=== PATIENT | female | born 1960 | race Caucasian/White ===

== ENCOUNTER → 2016-12-07 | Outpatient (CLI) | payer BC ==
[2016-12-07 10:30] LABS: Basophils # (A) 0.1 k/uL (0-0.2); Basophils % (A) 1 %; CH 29.9; CHCM 32.2; Eosinophils # (A) 0.1 k/uL (0-0.7); Eosinophils % (A) 3 %; HDW 2.19; HGB 13.1 gm/dL (11.4-16.0); Luc # (Auto) 0.11; Luc % (Auto) 2; Lymphocytes # (A) 1.2 k/uL (1.0-4.8); Lymphocytes % (A) 21 %; MCH 29.7 pg (25.0-35.0); MCHC 31.8 g/dL (31.0-37.0); MCV 93.2 fL (80.0-100.0); Mean Platelet Volume 8.7; Monocytes # (A) 0.4 k/uL (0-1.0); Monocytes % (A) 8 %; Neutrophils # (A) 3.7 k/uL (1.3-7.7); Neutrophils % (A) 66 %; WBC 5.6 k/uL (3.8-10.6); WBC (Perox) 5.91
[2016-12-07 10:34] LABS: Appearance,Urine Clear (Clear); Bilirubin,Urine Negative (Negative); Glucose,Urine (UA) Negative (Negative); Ketones,Urine Negative (Negative); Leukocyte Esterase,Urine Large (Negative); Mucus,Urine Rare /hpf; Nitrite,Urine Negative (Negative); Particle Count 2150; Protein,Urine Negative (Negative); RBC,Urine <1 /hpf (0-5); Specific Gravity,Urine 1.007 (1.001-1.035); Squamous Epithelial Cell,Urine 2 /hpf (0-4); UA Billing (MACRO vs. MICRO) MICRO; Urobilinogen,Urine <2.0 mg/dL (<2.0); WBC,Urine 27 /hpf (0-5)
[2016-12-07 10:38] LABS: Potassium 4.7 mmol/L (3.5-5.1)
== END | disposition home or self-care (01) ==
LOC: LABWHC1 09:47
PROVIDERS: ATTEND Surgery
DX: Z01.812 Encounter for preprocedural laboratory examination (principal); N39.0 Urinary tract infection, site not specified
CPT/HCPCS: 36415; 80051; 81001; 85025

== ENCOUNTER 2017-01-14 12:33 | Day surgery (SDC) | payer BC ==
[2017-01-13 10:16] VITALS: BMI 26.6
[~2017-01-14 12:33] MED LIST: DEXAMETHASONE SOD PHOSPHATE 10 MG/ML 1 ML VIAL IV ONE; HEPARIN SODIUM,PORCINE 5,000 UNIT/ML 1 ML VIAL SQ ONE; LACTATED RINGERS 1,000 ML IV SCH; MIDAZOLAM 2 MG/2 ML VIAL IV PRN; SCOPOLAMINE 1.5MG/72HR PATCH TRANSDERM ONE; ceFAZolin 2 GM in SODIUM CHLORIDE 0.9% 100 ML IVPB ONE
[2017-01-14] MEDS: LIDOCAINE 1% 20 ML VIAL (10MG/ML) FOR IV START INTRADERMA PRN ×2 (12:52→12:53)
[2017-01-14] MEDS: ONDANSETRON 4 MG/2 ML VIAL IVP ONE ×2 (12:53→17:17)
[2017-01-14] MEDS ORDERED: ROCURONIUM BROMIDE 10 MG/ML 10 ML VIAL IV ONE (14:45)
[2017-01-14] MEDS ORDERED: SUCCINYLCHOLINE CHLORIDE 100 MG/5 ML SYR IV ONE (14:45)
[2017-01-14] MEDS ORDERED: MIDAZOLAM 2 MG/2 ML VIAL ONE (14:45)
[2017-01-14] MEDS ORDERED: HYDROmorphone (PF) 1 MG/ML ONE (14:45)
[2017-01-14] MEDS ORDERED: PROPOFOL 10 MG/ML 20 ML VIAL IV ONE (14:45)
[2017-01-14] MEDS ORDERED: NEOSTIGMINE 1 MG/ML 10 ML VIAL ONE (14:45)
[2017-01-14] MEDS ORDERED: GLYCOPYRROLATE 0.2 MG/ML 2 ML VIAL ONE (14:45)
[2017-01-14] MEDS ORDERED: LIDOCAINE 1% INJ 10MG/ML (20 ML MDV) ONE (14:45)
[2017-01-14] MEDS ORDERED: ePHEDrine 50 MG/ML 1 ML AMP ONE (14:45)
[2017-01-14] MEDS ORDERED: fentaNYL (PF) 50 MCG/ML 2 ML AMP ONE (14:45)
[2017-01-14] MEDS ORDERED: BUPIVACAIN-EPI 0.25%-1:200,000 30 ML VIAL SQ ONE ×2 (15:21)
[2017-01-14] MEDS ORDERED: LACTATED RINGERS 1,000 ML IV ONE (16:01)
[2017-01-14] MEDS: HYDROmorphone 1 MG/ML 1 ML SYRINGE IVP PRN ×4 (16:43→17:24)
[2017-01-14 16:53] VITALS: TEMP 97.4
[2017-01-14] MEDS ORDERED: KETOROLAC 30 MG/ML 1 ML VIAL IVP ONE (17:02)
--- NOTE | 2017-01-14 17:15 | P.OP ---
Date of Procedure: 01/14/17 Preoperative Diagnosis: Right sided inguinal pain Postoperative Diagnosis: Right femoral hernia Right indirect inguinal hernia Right obturator hernia Procedure(s) Performed: RObot assisted laparocopic repair of right groin hernias with mesh Implants: 12 x 16 Bard Pro director of sleep mesh Anesthesia: ANDRAEA Surgeon: Pro Solomon Estimated Blood Loss (ml): 11 Pathology: none sent Condition: stable Disposition: PACU Indications for Procedure: Right groin pain Operative Findings: Right femoral hernia Right obturator hernia Right indirect inguinal hernia Description of Procedure: Informed consent was obtained patient and then The patient was brought to the operating room and placed in supine position. General anesthesia with endotracheal intubation was performed as per anesthesia team. A jimenez catheter was inserted under sterile aseptic precautions. Chlorhexidine was used to prep the skin followed by application of sterile drapes . She was placed in the lithotomy position. A timeout was performed to verify correct patient, correct procedure and correct side. Patient was confirmed to receive perioperative IV antibiotics, subcutaneous heparin 5000 units and bilateral SCDs were placed. The left upper quadrant point was identified and a stab incision was made. Veress needle was introduced and placement was confirmed with the help of the drop test. The abdomen was then insufflated to 15 mmHg. Once that was done 5 mm port was introduced into the left upper quadrant using the Optiview technique after which a 12 mm port was placed in the supraumbilical position and a 8 mm port in the right lower quadrant and then after that the left-sided 5 mm port was replaced with a robot 8 mm port under direct vision. The robot was then docked with the central camera port and the 2 side working ports. The cardia forceps and scissors were taken and the working ports. After which the median umbilical fold was retracted laterally towards the left side a small incision was made at the junction of the umbilical fold and the peritoneum and carried all the way laterally thus creating a small plane in the preperitoneal space. This did this was further dissected with the help of blunt dissection using gentle stroking maneuvers all the way down to Jamey ligament medially. The hernia sac was identified and gently teased out of was lateral to the inferior epigastrics. The round ligament was identified and transected with the help of scissors and electrocautery. At that point as the inferior peritoneal fold was being developed another pad of fat was pulled out from the femoral canal was exposing a femoral hernia furthermore another pad of fat was pullout of the obturator canal exposing the obturator hernia. There were no other past events within these hernias. Once the fascial margins were completely cleared up adequate dissection was done medially behind the pubic bone laterally all the way 5 cm lateral to the internal inguinal ring and inferiorly well below the obturator hernia a 12 x 16 Bard Pro director of sleep mesh was introduced and unfolded this completely covering all the orifices. Once that was done the peritoneal flaps were closed with the help of running 0 vlock suture once that was done procedure was completed all incisions and camera was removed and a laparoscope was introduced and the 12 mm port site was closed with the help of a Emir Rowley the direct vision after which gas was turned off abdomen was thoroughly desufflated skins was closed with the help of 4-0 Monocryl and Dermabond. Jimeenz catheter was removed patient was extubated and taken to recovery room in stable condition patient tolerated the procedure well there were no complications
[2017-01-14 17:46] VITALS: RESP 16
[2017-01-14 18:54] VITALS: BP 114/60; PULSE 65
== END 2017-01-14 19:05 | disposition home or self-care (01) ==
LOC: OR 12:33
PROVIDERS: ATTEND Surgery
DX: K40.90 Unilateral inguinal hernia, without obstruction or gangrene, not specified as recurrent (principal); K41.90 Unilateral femoral hernia, without obstruction or gangrene, not specified as recurrent; K45.8 Other specified abdominal hernia without obstruction or gangrene; E03.9 Hypothyroidism, unspecified; Z79.899 Other long term (current) drug therapy; Z79.82 Long term (current) use of aspirin
CPT/HCPCS: 49650; 49659; S2900

== ENCOUNTER → 2020-02-07 | Outpatient (CLI) | payer BC ==
--- NOTE | 2020-02-07 09:10 | US ---
EXAMINATION TYPE: US abdomen comp/pelvis limited DATE OF EXAM: 02/07/2020 COMPARISON: Abdominal ultrasound 09/19/2015 CLINICAL HISTORY: R10.31 RLQ PAIN. Right flank pain for 2 months, nausea EXAM MEASUREMENTS: Liver Length: 15.4 cm Gallbladder Wall: 0.2 cm CBD: 0.6 cm Spleen: 10.2 cm Right Kidney: 10.9 x 3.7 x 4.2 cm Left Kidney: 11.1 x 5.6 x 3.8 cm Technical limitations due to large amount of overlying bowel content Pancreas: visualized portions appear wnl Liver: appears wnl Gallbladder: no evidence of stones CBD: wnl Spleen: wnl Right Kidney: cystic area anterior lower pole = 1.1 x 1.1 x 1.1cm, dense echogenic area lower pole = 0.5cm Left Kidney: prominent collecting system Upper IVC: wnl Abd Aorta: visualized portions appear wnl Bladder: wnl Bilateral Jets Seen yes IMPRESSION: 1. No sonographic evidence of cholelithiasis nor acute cholecystitis. 2. Fullness of the left collecting system is again seen as demonstrated on the prior of 2014 appearin g similar in degree, mild pelvocaliectasis. 3. Nonobstructing 5 mm right renal calculus and 1.1 cm right renal cyst.
== END | disposition home or self-care (01) ==
LOC: RADUSWWP 08:17
PROVIDERS: ATTEND Family Medicine
DX: N20.0 Calculus of kidney (principal); N28.1 Cyst of kidney, acquired
CPT/HCPCS: 76700; 76857

== ENCOUNTER → 2020-03-18 | Outpatient (CLI) | payer BC ==
--- NOTE | 2020-03-18 13:50 | XR ---
EXAMINATION TYPE: XR shoulder complete RT DATE OF EXAM: 03/18/2020 COMPARISON: NONE HISTORY: 59-year-old female S46.011D, right shoulder pain after fall TECHNIQUE: 3 views FINDINGS: Mild degenerative change at the AC joint. Subacromial space is preserved. No acute fracture, subluxat ion, or dislocation seen. IMPRESSION: Mild AC joint OA. No acute osseous abnormality seen.
== END | disposition home or self-care (01) ==
LOC: RADXRMAIN 10:37
PROVIDERS: ATTEND Orthopaedic Surgery Adult Reconstructive Orthopaedic Surgery
DX: M19.011 Primary osteoarthritis, right shoulder (principal)

== ENCOUNTER 2020-11-05 11:39 | Day surgery (SDC) | payer BC ==
[2020-11-01 15:08] VITALS: BMI 27.7
[~2020-11-05 11:39] MED LIST changes: -DEXAMETHASONE SOD PHOSPHATE 10 MG/ML 1 ML VIAL IV ONE; -HEPARIN SODIUM,PORCINE 5,000 UNIT/ML 1 ML VIAL SQ ONE; +LIDOCAINE 1% (10MG/ML) FOR IV START INTRADERMA PRN; -MIDAZOLAM 2 MG/2 ML VIAL IV PRN; -SCOPOLAMINE 1.5MG/72HR PATCH TRANSDERM ONE; -ceFAZolin 2 GM in SODIUM CHLORIDE 0.9% 100 ML IVPB ONE
[2020-11-05 12:46] VITALS: TEMP 97
[2020-11-05] MEDS ORDERED: ONDANSETRON 4 MG/2 ML VIAL ONE (13:12)
[2020-11-05] MEDS ORDERED: ONDANSETRON 4 MG/2 ML VIAL IVP ONE (13:16)
[2020-11-05] MEDS ORDERED: PROPOFOL 10 MG/ML 20 ML VIAL IV ONE (13:27)
[2020-11-05] MEDS ORDERED: LIDOCAINE 1% INJ 10MG/ML (20 ML MDV) ONE (13:27)
[2020-11-05] MEDS ORDERED: GLYCOPYRROLATE 0.2 MG/ML 2 ML VIAL ONE (13:27)
--- NOTE | 2020-11-05 13:53 | P.PCN ---
Date of Procedure: 11/05/20 Procedure(s) Performed: Brief history: Patient is a pleasant 60-year-old white female scheduled for an elective upper endoscopy as well as colonoscopy as a part of evaluation of abdominal pain/nausea vomiting associated with episodes of rectal bleeding for the last 10 days duration. She has bowel movements anywhere from 3-4 a day.. Procedure performed: Esophagogastroduodenoscopy with biopsy Colonoscopy with biopsy and snare polypectomy Preoperative diagnosis: Nausea vomiting Abdominal pain and bloody diarrhea for 10 days duration Anesthesia: MAC Procedure: After informed consent was obtained from the patient was brought into the endoscopy unit and IV sedation was administered by anesthesia under continuous monitoring. Initially upper endoscopy was done. The Olympus GF 160 video endoscope was inserted inserted into the mouth and esophagus intubated without any difficulty and was gradually advanced into the stomach and duodenum and carefully examined. The bulb and second part of the duodenum appeared normal. Biopsies were done from the duodenum to rule out celiac disease. The scope was then withdrawn into the stomach adequately insufflated with air and upon careful examination the antrum had mild gastritis and biopsies were done from this area. The body, cardia and fundus appeared normal. The scope was then withdrawn into the esophagus. The GE junction was located at 40 cm to the incisors. It appeared regular with no erythema erosions or ulcerations. Rest of the esophagus appeared normal. Patient tolerated the procedure well. At this time the patient continued to remain sedation. Initial digital rectal examination was normal. Olympus CF 160 video colonoscope was then inserted into the rectum and gradually advanced to the cecum without any difficulty. Careful examination was performed as the scope was gradually being withdrawn. The prep was excellent. The cecum, ascending colon, transverse colon, appeared normal. There was mild segmental colitis involving the distal descending colon extending from 45-55 cm from the anal verge with mucosal erythema suspicious for resolving ischemic colitis, status post multiple biopsies. Scattered left sided diverticulosis seen. Mucosa of the, sigmoid colon and rectum appeared normal. There was a 5 mm rectosigmoid polyp that was removed by snare polypectomy. Retroflexion was performed in the rectum and no lesions were noted. Patient tolerated the procedure well. Impression: 1. Upper endoscopy revealed mild antral gastritis 2. Colonoscopy revealed mild segmental ressolving colitis involving the descending colon with erythema suggestive of ischemic colitis, status post biopsy, scattered sigmoid diverticulosis and a 5 mm rectosigmoid polyp status post snare polypectomy Recommendations: Findings of this examination were discussed with the patient as well as. She was advised to follow with the biopsy results. She'll be seen in office in 2 weeks.
[2020-11-05 14:25] VITALS: BP 134/85; PULSE 85; RESP 16
== END 2020-11-05 14:35 | disposition home or self-care (01) ==
LOC: ORWHC2ENDO 11:39
PROVIDERS: ATTEND Internal Medicine Gastroenterology
DX: K57.30 Diverticulosis of large intestine without perforation or abscess without bleeding (principal); K29.50 Unspecified chronic gastritis without bleeding; K55.039 Acute (reversible) ischemia of large intestine, extent unspecified; D12.8 Benign neoplasm of rectum; K21.9 Gastro-esophageal reflux disease without esophagitis; Z86.010 Personal history of colon polyps; Z79.890 Hormone replacement therapy
CPT/HCPCS: 88305; 45380; 45385; 43239; J2405; J2001; J2704

== ENCOUNTER → 2021-09-10 | Outpatient (CLI) | payer BC ==
--- NOTE | 2021-09-11 05:08 | MR ---
EXAMINATION TYPE: MR shoulder RT wo con DATE OF EXAM: 09/10/2021 COMPARISON: None HISTORY: Shoulder pain Comparison none. TECHNIQUE: Multiplanar multiecho imaging of the right shoulder without contrast. Subscapularis tendon is intact. Biceps tendon is intact. There is small shoulder joint effusion. Ther e is some fluid in the subdeltoid bursa. There is some thinning and increased signal in the supraspin atus tendon over the top of the humeral head. There is no retraction. There is some spurring and flui d signal in the AC joint. Fluid signal extends into the subacromial joint space. The glenoid janeen appear intact. There is no evidence of a fracture. IMPRESSION: Shoulder joint effusion and subdeltoid effusion. Increased fluid signal in the AC joint consistent wi th ligamentous tear. There is small full-thickness tear of the supraspinatus tendon. No retraction.
== END | disposition home or self-care (01) ==
LOC: RADMRIMAIN 06:56
PROVIDERS: ATTEND Family Medicine
DX: M75.121 Complete rotator cuff tear or rupture of right shoulder, not specified as traumatic (principal); M25.411 Effusion, right shoulder

== ENCOUNTER → 2021-12-11 | Outpatient (CLI) | payer BC ==
--- NOTE | 2021-12-11 13:00 | ECHOF ---
Referral Reason:I51.7 MEASUREMENTS -------- HEIGHT: 165.1 cm WEIGHT: 79.4 kg BP: RVIDd: 3.9 cm (< 3.3) IVSd: 1.2 cm (0.6 - 1.1) LVIDd: 4.3 cm (3.9 - 5.3) LVPWd: 1.2 cm (0.6 - 1.1) IVSs: 2.1 cm LVIDs: 2.3 cm LVPWs: 1.3 cm LAESV Index (A-L): 42.39 ml/m Ao Diam: 3.1 cm (2.0 - 3.7) AV Cusp: 2.0 cm (1.5 - 2.6) LA Diam: 4.2 cm (2.7 - 3.8) MV EXCURSION: 17.766 mm (> 18.000) MV EF SLOPE: 57 mm/s (70 - 150) EPSS: 0.2 cm MV E Job: 0.83 m/s MV DecT: 218 ms MV A Job: 1.10 m/s MV E/A Ratio: 0.76 RAP: 5.00 mmHg RVSP: 23.82 mmHg FINDINGS -------- Sinus rhythm. This was a technically adequate study. The left ventricular size is normal. There is mild concentric left ventricular hypertrophy. Overa ll left ventricular systolic function is normal with, an EF between 55 - 60 %. The right ventricle is mild to moderately enlarged. The left atrium is mildly dilated. The right atrial size is normal. Interatrial and interventricular septum intact. The aortic valve is trileaflet and appears structurally normal. There is no evidence of aortic regu rgitation. There is no evidence of aortic stenosis. Mild mitral regurgitation is present. Mild tricuspid regurgitation present. There is no evidence of pulmonary hypertension. The right v entricular systolic pressure, as measured by Doppler, is 23.82mmHg. Trace/mild (physiologic) pulmonic regurgitation. The aortic root size is normal. IVC Not well visulized. Echo free space represents a pericardial fat pad. There is no pericardial effusion. CONCLUSIONS -------- 1. The left ventricular size is normal. 2. There is mild concentric left ventricular hypertrophy. 3. Overall left ventricular systolic function is normal with, an EF between 55 - 60 %. 4. The right ventricle is mild to moderately enlarged. 5. The left atrium is mildly dilated. 6. Mild mitral regurgitation is present. 7. Mild tricuspid regurgitation present. 8. Trace/mild (physiologic) pulmonic regurgitation. WORKER'S COMPENSATION CLAIMS EXAMINER: Rasheeda Godoy RDCS
== END | disposition home or self-care (01) ==
LOC: RADECHMAIN 11:50
PROVIDERS: ATTEND Family Medicine
DX: I08.1 Rheumatic disorders of both mitral and tricuspid valves (principal)
CPT/HCPCS: 93306

== ENCOUNTER → 2022-02-17 | Outpatient (CLI) | payer BC, OTHER ==
--- NOTE | 2022-02-17 13:34 | US ---
EXAMINATION TYPE: US venous doppler duplex LE LT DATE OF EXAM: 02/17/2022 1:15 PM COMPARISON: NONE CLINICAL HISTORY: R22.42. Left Knee pain and swelling post fall in 12/2021 SIDE PERFORMED: Left TECHNIQUE: The lower extremity deep venous system is examined utilizing real time linear array sonog jack with graded compression, doppler sonography and color-flow sonography. VESSELS IMAGED: Common Femoral Vein Deep Femoral Vein Greater Saphenous Vein * Femoral Vein Popliteal Vein Small Saphenous Vein * Proximal Calf Veins (* superficial vessels) Popliteal fossa/medial to left knee fluid collection measuring 4.5 x 2.2 x 0.9cm Left Leg: Negative for DVT No DVT seen at this time, fluid collection seen in popliteal fossa, medial to left knee. IMPRESSION: 1. Left lower extremity ultrasound negative for deep venous thrombosis. 2. Small fluid collection outside the joint space may be a popliteal cyst
== END | disposition home or self-care (01) ==
LOC: RADUSWWP 12:41
PROVIDERS: ATTEND Family Medicine
DX: R22.42 Localized swelling, mass and lump, left lower limb (principal); M25.562 Pain in left knee; W19.XXXA Unspecified fall, initial encounter

== ENCOUNTER → 2022-03-28 | Outpatient (CLI) | payer BC, OTHER ==
[2022-03-28 16:15] LABS: Anion Gap 9.8 mmol/L (10.00-18.00); Carbon Dioxide 25.2 mmol/L (20.0-27.5); Potassium 4.3 mmol/L (3.5-5.5)
[2022-03-28 16:18] LABS: Basophils # (A) 0.05 X 10*3/uL (0.00-0.10); Basophils % (A) 0.8 %; Eosinophils % (A) 1.6 %; HCT 39.8 % (37.2-46.3); HGB 12.4 g/dL (12.0-15.0); Immature Grans, Automated 0.2 %; Lymphocytes # (A) 1.96 X 10*3/uL (0.90-5.00); Lymphocytes % (A) 31.5 %; MCH 28.8 pg (27.0-32.0); MCHC 31.2 g/dL (32.0-37.0); MCV 92.6 fL (80.0-97.0); Mean Platelet Volume 12.4 fL (9.5-12.2); Monocytes # (A) 0.76 X 10*3/uL (0.20-1.00); Monocytes % (A) 12.2 %; NRBC Per 100 WBC 0 /100 WBCS (0.0-0.0); Neutrophils # (A) 3.34 X 10*3/uL (1.80-7.70); Neutrophils % (A) 53.7 %; Platelet Count 199 X 10*3/uL (140-440); RDW 13.1 % (11.5-14.5); WBC 6.22 X 10*3/uL (4.50-10.00)
== END | disposition home or self-care (01) ==
LOC: LABPAT 10:44
PROVIDERS: ATTEND Orthopaedic Surgery
DX: Z01.812 Encounter for preprocedural laboratory examination (principal); M23.92 Unspecified internal derangement of left knee
CPT/HCPCS: 80051; 85025; 93005

== ENCOUNTER → 2022-04-16 | Day surgery (SDC) | payer BC, OTHER ==
[2022-04-15 08:54] VITALS: BMI 30.4
--- NOTE | 2022-04-15 13:47 | HP ---
HISTORY AND PHYSICAL REASON FOR ADMISSION: Surgery scheduled 04/16/2022 HISTORY OF PRESENT ILLNESS: Isidra Lewis is a 61-year-old patient seen with progressive left knee pain. We discussed options for treatment. She elected to proceed with left knee arthroscopy. Consent was obtained. PAST MEDICAL HISTORY: Hypothyroidism. PAST SURGICAL HISTORY: Herniorrhaphy, cervical spine surgery. MEDICATIONS: Synthroid. ALLERGIES: None. SOCIAL HISTORY: She denies tobacco use. PHYSICAL EVALUATION OF THE LEFT KNEE: Range of motion is -5/6 to 80. Mild to moderate effusion. Tenderness along the medial joint line. Positive medial Pavithra's. Ligaments stable. Hip rotation without pain. Distal neurovascular exam is intact. RADIOGRAPHS: Radiographs of the left knee revealed mild osteoarthritis. MRI left knee revealed medial meniscal tear, osteoarthritis and Panda's cyst. IMPRESSION: 1. Internal derangement of left knee with medial meniscal tear. 2. Hypothyroidism. PLAN: Left knee arthroscopy with partial medial meniscectomy and debridement. MMODL / IJN: [id number] /
[~2022-04-16] MED LIST changes: +BUPIVACAINE (PF) 0.25% 30 ML VIAL SQ ONE; +DEXAMETHASONE SOD PHOSPHATE 4 MG/ML 1 ML VIAL IV ONE; -LIDOCAINE 1% (10MG/ML) FOR IV START INTRADERMA PRN; +LIDOCAINE 2% INJ 20 MG/ML (2 ML VIAL) ONE; +MIDAZOLAM 2 MG/2 ML VIAL ONE; +PROPOFOL 10 MG/ML 20 ML VIAL IV ONE; +diphenhydrAMINE 50 MG/ML 1 ML VIAL ONE; +fentaNYL (PF) 50 MCG/ML 2 ML AMP ONE
[2022-04-16] MEDS: ONDANSETRON 4 MG/2 ML VIAL IVP ONE ×2 (08:53→10:09)
--- NOTE | 2022-04-16 09:53 | P.OP ---
Date of Procedure: 04/16/22 Preoperative Diagnosis: Internal derangement left knee Postoperative Diagnosis: 1. Medial meniscal tear left knee 2. Reactive synovitis medial, lateral and suprapatellar compartments left knee Procedure(s) Performed: 1. Arthroscopic partial medial meniscectomy left knee 2. Arthroscopic partial synovectomy medial, lateral and suprapatellar compartments left knee Anesthesia: ANDRAEA, local Surgeon: Slade Villarreal Estimated Blood Loss (ml): 8 Pathology: none sent Condition: stable Disposition: PACU Indications for Procedure: 61-year-old patient seen with progressive left knee pain. After treatment options were discussed, she elected to proceed with arthroscopy. Operative Findings: See description of procedure Description of Procedure: Patient was taken to the operative suite. Patient underwent a general anestheti c by the department of anesthesia. Patient was given preoperative antibiotics. The left lower extremity was placed in a well-padded arthroscopic leg boyd. The left leg was prepped and draped in the normal sterile orthopedic fashion. A lateral parapatellar and suprapatellar incision was made. Trochars were inserted. Arthroscopy was initiated. Suprapatellar pouch revealed diffuse thick reactive synovitis. The patellofemoral joint appeared to articulate congruently. There was grade 2 chondromalacia of the patella with no significant osteochondral tears present. The scope was guided into the medial gutter. No loose bodies or plica were identified. The scope was then guided into the medial compartment. A medial parapatellar incision was made. Trocar inserted followed by probe. There was a complex tear involving the mid body and posterior horn of the medial meniscus. There were grade 2 chondromalacia changes of the tibial plateau and grade 1/2 chondromalacia changes of the medial femoral condyle with no osteochondral tears present. There was some thick reactive synovitis anteriorly. I performed a partial medial meniscectomy getting down to stable meniscal tissue. I performed a partial synovectomy decompressing the thick reactive synovitis anteriorly. The residual meniscus was stable. There was good decompression of the synovitis. Scope and probe were then guided into the intercondylar notch. Cruciates were identified, probed and found to be stable. The scope and probe were then guided into lateral compartment. Lateral meniscus was probed and found to be stable. There was no significant chondromalacia present within the lateral compartment. There was some thick reactive synovitis anteriorly. I introduced a motorized shaver and I performed a partial synovectomy. Shaver was now removed. There was good decompression of the synovitis. The scope was in guided back into the suprapatellar compartment. I introduced a motorized shaver into the supr apatellar compartment. I debrided some piecemeal fragments of meniscus that I encountered. I performed a partial synovectomy. Shaver was removed. There was good decompression of the synovitis. I took one more look around the entire knee, no residual debris. Instruments were now removed from the joint. The joint was infiltrated with .25% Marcaine. Steri-Strips were applied to the portal sites. Sterile dressings were applied. The patient was placed into a TAMERA hose. No tourniquet was utilized. The patient was awakened, transferred to a bed and taken to recovery stable satisfactory condition.
[2022-04-16 09:58] VITALS: TEMP 96.9
[2022-04-16] MEDS: HYDROmorphone 0.5 MG/0.5 ML SYRINGE IVP PRN ×2 (10:09→10:14)
[2022-04-16 10:12] VITALS: RESP 16
[2022-04-16 10:47] VITALS: BP 173/79; PULSE 56
== END | disposition home or self-care (01) ==
LOC: OR 08:03
PROVIDERS: ATTEND Orthopaedic Surgery
DX: M23.204 Derangement of unspecified medial meniscus due to old tear or injury, left knee (principal); M65.862 Other synovitis and tenosynovitis, left lower leg; E03.9 Hypothyroidism, unspecified; Z98.890 Other specified postprocedural states; K21.9 Gastro-esophageal reflux disease without esophagitis; Z86.19 Personal history of other infectious and parasitic diseases; Z79.890 Hormone replacement therapy; Z79.899 Other long term (current) drug therapy
CPT/HCPCS: 29881; 29876; J2250; J1200; J1100; J0690; J2405; J3010; J2704; J1170; J1790; J2001

== ENCOUNTER → 2023-03-11 | Outpatient (CLI) | payer OTHER ==
--- NOTE | 2023-03-12 15:24 | MM ---
Reason for Exam: Screening (asymptomatic). Last mammogram was performed 1 year(s) and 5 month(s) ago. Patient History: Menarche at age 14. Patient has no children. Postmenopausal. Risk Values: Sharon 5 year model risk: 1.6%. NCI Lifetime model risk: 8.1%. Prior Study Comparison: 06/15/2019 Bilateral Screening Mammogram, [facility]. 10/01/2021 Bilateral Screening Mammogram, [facility]. Tissue Density: The breast tissue is heterogeneously dense. This may lower the sensitivity of mammography. Findings: Analyzed By CAD. Abdomen appears symmetrical and stable. Benign vascular calcification is present bilaterally. There are scattered benign-appearing punctate calcifications. No suspicious groups of microcalcifications, spiculated or lobular masses, architectural distortion or other secondary signs of malignancy are mammographically apparent. Overall Assessment: Benign, BI-RAD 2 Management: Screening Mammogram of both breasts in 1 year. A negative mammogram report should not preclude additional follow up of suspicious palpable abnormalities. Patient should continue monthly self breast exam. A clinical breast exam by your physician is recommended on an annual basis and results should be correlated with mammographic findings. Electronically signed and approved by: Silvio Worthy D.O. Radiologis
== END | disposition home or self-care (01) ==
LOC: RADMAMWWP 07:54
PROVIDERS: ATTEND Family Medicine
DX: Z12.31 Encounter for screening mammogram for malignant neoplasm of breast (principal); Z78.0 Asymptomatic menopausal state
CPT/HCPCS: 77063; 77067

== ENCOUNTER → 2023-03-22 | Outpatient (CLI) | payer MEDICAID, OTHER ==
--- NOTE | 2023-03-22 18:34 | CA ---
Transthoracic Echo Report Name: Isidra Dueñas Age: 62 Gender: F : 1960 Exam Date: 03/22/2023 15:08 Exam Location: [place] [facility] Ht (in): 64.5 Wt (lb): 180 Ordering Physician: Herman Castellanos MD Attending/Referring Phys: Georgina Castillo PAC Senior Procurement Specialist Lucille Douglas RDCS Procedure CPT: Indications: R06.09 Cardiac Hx: Technical Quality: Good Contrast 1: Total Dose (mL): Contrast 2: Total Dose (mL): MEASUREMENTS (Male / Female) Normal Values 2D ECHO LV Diastolic Diameter PLAX 4.7 cm 4.2 - 5.9 / 3.9 - 5.3 cm LV Systolic Diameter PLAX 3.1 cm IVS Diastolic Thickness 1.0 cm 0.6 - 1.0 / 0.6 - 0.9 cm LVPW Diastolic Thickness 1.0 cm 0.6 - 1.0 / 0.6 - 0.9 cm LV Relative Wall Thickness 0.4 RV Internal Dim ED PLAX 2.8 cm LA Systolic Diameter LX 3.7 cm 3.0 - 4.0 / 2.7 - 3.8 cm LA Volume 44.4 cm??? 18 - 58 / 22 - 52 cm??? M-MODE Aortic Root Diameter MM 3.1 cm MV E Point Septal Separation 0.7 cm AV Cusp Separation MM 2.2 cm DOPPLER AV Peak Velocity 118.9 cm/s AV Peak Gradient 5.7 mmHg MV Area PHT 3.6 cm??? Mitral E Point Velocity 83.6 cm/s Mitral A Point Velocity 99.8 cm/s Mitral E to A Ratio 0.8 MV Deceleration Time 207.9 ms MV E' Velocity 6.6 cm/s Mitral E to MV E' Ratio 12.7 TR Peak Velocity 189.4 cm/s TR Peak Gradient 14.4 mmHg Right Ventricular Systolic Press 19.4 mmHg FINDINGS Left Ventricle Left ventricular ejection fraction is estimated at 55-60 %. Left ventricular cavity size normal. Small perimembranus VSD noted. left ventricular cavity size normal. Right Ventricle Normal right ventricular size and function. Right ventricular systolic pressure within normal limits. Right Atrium Normal right atrial size. Left Atrium Normal left atrial size. Mitral Valve Structurally normal mitral valve. Mild mitral regurgitation. Aortic Valve Trileaflet aortic valve. No aortic valve stenosis or regurgitation. Tricuspid Valve Structurally normal tricuspid valve. Trace to mild tricuspid regurgitation. Pulmonic Valve Structurally normal pulmonic valve. Pericardium Normal pericardium. No pericardial effusion. Aorta Normal size aortic root and proximal ascending aorta. CONCLUSIONS 1. Normal left ventricle size and systolic function 2. Small perimembranous VSD with normal right-sided pressure 3. Mild mitral with trace to mild tricuspid regurgitation Previewed by: Dr. Garret Hernandez MD (Electronically Signed) Final Date: 22 Mar 2023 18:33
== END | disposition home or self-care (01) ==
LOC: RADECHMAIN 14:56
PROVIDERS: ATTEND Family Medicine
DX: I08.1 Rheumatic disorders of both mitral and tricuspid valves (principal); R06.09 Other forms of dyspnea
CPT/HCPCS: 93306

== ENCOUNTER → 2023-04-05 | Outpatient (CLI) | payer MEDICAID, OTHER ==
--- NOTE | 2023-04-05 12:32 | NM ---
EXAMINATION TYPE: NM stress lexiscan cardiolite DATE OF EXAM: 04/05/2023 COMPARISON: NONE CLINICAL INDICATION: Female, 62 years old with history of R06.09 dyspnea; TECHNIQUE: After the intravenous administration of 9.8 mCi Tc 99m Sestamibi - Cardiolite resting SPE CT images acquired 45 minutes post injection. The patient received 0.4mg Lexiscan, 25.2 mCi Tc 99m Sestamibi - Stress images obtained [address] injection FINDINGS: Review of stress and rest SPECT images demonstrates fixed perfusion defect involving the anterior wal l of the myocardium. Small area of stress-induced reversible ischemia in the anterior oral wall not e xcluded. Corresponding wall motion defect.. Gated analysis shows an estimated left ventricular eject ion fraction of 52 %. IMPRESSION: 1. Predominantly fixed defect anterior wall suggestive of prior infarction with a small area of stres s-induced reversible ischemia suspected. A [place] level critical message alert has been initiated for Herman Castellanos MD via the [employer] Critical Results System on 04/05/2023 12:29 PM. This message alert has been sent to Herman Castellanos MD vi a the preferences provided by the clinician for the receipt of Radiology Critical Findings. Message I D [id number].
--- NOTE | 2023-04-06 09:02 | CA ---
Lexiscan Nuclear Stress Test Report Name: Isidra Dueñas Exam Date: 04/05/2023 10:28 Exam Location: [place] Stress Ht (in): 65 Wt (lb): 173 BSA: 1.86 Ordering Phys: Herman Castellanos MD Referring Phys: Georgina Castillo PAC Technologist: ROSENDA,, Age: 62 Gender: F : 1960 Procedure CPT: Indications: R06.09 Dyspnea ICD-10 Codes: Patient History: Shortness of breath Medications: ATORVASTATIN,,,,, Meds past 24 hrs: Pretest Chest Pain: STRESS TEST Lexiscan Protocol Exercise Duration (min:sec): 01:[address] Depressions (mm): Angina Score: Lloyd Score: Resting HR (bpm): 61 Peak HR (bpm): 95 Resting BP (mmHg): 165 / 87 Peak BP (mmHg): 188 / 107 MPHR: 160 Target HR: 136 % MPHR: 59 METS: 1.0 Total Dose: Peak Dose: Atropine: Double Product: 62131 BP Response: Stress Termination: INFUSION COMPLETE Stress Symptoms: NO SYMPTOMS Stress Summary: ECG ANALYSIS Resting ECG: Stress ECG: CONCLUSIONS Baseline EKG revealed a normal sinus rhythm without significant ST-T changes. With Lexiscan administration as per protocol the heart rate went up from 61-80 bpm and the blood pressure changed from 170/82 155/94. Patient was asymptomatic. The EKG part of the stress test does not suggest ischemia. The nuclear part of stress test will be reported by the radiologist Dr. Neo Lindo MD (Electronically Signed) Final Date: 06 Apr 2023 09:01
== END | disposition home or self-care (01) ==
LOC: RADNMMAIN 08:03
PROVIDERS: ATTEND Family Medicine
DX: I51.89 Other ill-defined heart diseases (principal)
CPT/HCPCS: 78452; A9500; 93017

== ENCOUNTER 2023-04-06 10:00 | Observation (INO) | payer MEDICAID, OTHER ==
--- NOTE | 2023-04-06 10:25 | ED ---
General Adult HPI - General Chief complaint: Recheck/Abnormal Lab/Rx Stated complaint: Recheck Time Seen by Provider: 04/06/23 10:10 Source: patient, RN notes reviewed, old records reviewed Mode of arrival: ambulatory Limitations: no limitations - History of Present Illness Initial comments: 62-year-old female who presents for evaluation of tingling and pain to the jaw and left arm. Patient states she had outpatient stress testing and was called by her primary care provider to indicate that her stress test was positive. She has no active chest pain but does have pain in her left jaw and left arm currently. She denies limb weakness. Denies speech abnormalities. Denies headache. - Related Data Home Medications Medication Instructions Recorded Confirmed Levothyroxine Sodium [Synthroid] 75 mcg PO QAM 09/16/15 04/06/23 Omeprazole [PriLOSEC] 40 mg PO AC-BRKFST 04/16/22 04/06/23 Escitalopram [Lexapro] 5 mg PO DAILY 04/06/23 04/06/23 Ferrous Sulfate [Feosol] 325 mg PO Q2D 04/06/23 04/06/23 Rosuvastatin Calcium 5 mg PO HS 04/06/23 04/06/23 Semaglutide [Wegovy] 0.25 mg SQ MO 04/06/23 04/06/23 Vitamin B Complex 1 cap PO DAILY 04/06/23 04/06/23 Allergies Allergy/AdvReac Type Severity Reaction Status Date / Time No Known Allergies Allergy Verified 04/06/23 11:51 Review of Systems ROS Statement: Those systems with pertinent positive or pertinent negative responses have been documented in the HPI. ROS Other: All systems not noted in ROS Statement are negative. Past Medical History Past Medical History: GERD/Reflux, Thyroid Disorder Additional Past Medical History / Comment(s): Hx. H Pylori. Recent vomiting and diarhrea and bleeding from rectum. History of Any Multi-Drug Resistant Organisms: None Reported Past Surgical History: Tubal Ligation Additional Past Surgical History / Comment(s): FINGER SX, pilonidal cyst removed. Past Anesthesia/Blood Transfusion Reactions: Postoperative Nausea & Vomiting (PONV) Past Psychological History: No Psychological Hx Reported Smoking Status: Never smoker Past Alcohol Use History: Occasional Past Drug Use History: None Reported - Past Family History Mother Family Medical History: No Reported History General Exam Limitations: no limitations General appearance: alert, in no apparent distress Head exam: Present: atraumatic, normocephalic Eye exam: Present: normal appearance, PERRL ENT exam: Present: normal exam Neck exam: Present: tenderness. Absent: meningismus Respiratory exam: Present: normal lung sounds bilaterally. Absent: respiratory distress, wheezes, rales Cardiovascular Exam: Present: regular rate, normal rhythm GI/Abdominal exam: Present: soft. Absent: distended, tenderness, guarding Extremities exam: Present: normal inspection Neurological exam: Present: alert, oriented X3, CN II-XII intact, other (NIH is 0). Absent: motor sensory deficit Psychiatric exam: Present: anxious Skin exam: Present: warm, dry, intact. Absent: cyanosis, diaphoretic Course Vital Signs 04/06/23 04/06/23 10:06 11:04 Temperature 97.9 F Pulse Rate 70 68 Respiratory 20 18 Rate Blood Pressure 160/81 146/88 O2 Sat by Pulse 98 99 Oximetry EKG Findings - EKG Comments: EKG Findings:: EKG: Sinus rhythm rate of 69, KS interval 192, QRS duration 91, QTC 413, no ST segment elevation, T-wave inversion in lead 3 similar compared to previous EKG in 2021 Medical Decision Making - Medical Decision Making Was pt. sent in by a medical professional or institution (MARVIN Aponte, MANUFACTURE SPECIALIST, urgent care, hospital, or care home...) When possible be specific @ Sent in by primary care Did you speak to anyone other than the patient for history (EMS, parent, family, police, friend...)? What history was obtained from this source @ -No Did you review nursing and triage notes (agree or disagree)? Why? @ -I reviewed and agree with nursing and triage notes Were old charts reviewed (outside hosp., previous admission, EMS record, old EKG, old radiological studies, urgent care reports/EKG's, care home records)? Report findings @ Reviewed stress test results Differential Diagnosis (chest pain, altered mental status, abdominal pain women, abdominal pain men, vaginal bleeding, weakness, fever, dyspnea, syncope, headache, dizziness, GI bleed, back pain, seizure, CVA, palpatations, mental health, musculoskeletal)? @Differential Chest Pain: Stable Angina, Unstable Angina, STEMI, NSTEMI Aortic Dissection, Pneumothorax, Musculoskeletal, Esophageal Spasm GERD, Cholecystitis, Pancreatitis, Zoster, this is not meant to be an all-inclusive list. EKG interpreted by me (3pts min.). @ -As above X-rays interpreted by me (1pt min.). @ Chest x-ray Negative for acute cardiopulmonary disease, reviewed by myself CT interpreted by me (1pt min.). @ . CT without contrast, no intracranial hemorrhage or mass effect, reviewed by myself U/S interpreted by me (1pt. min.). @ -None done What testing was considered but not performed or refused? (CT, X-rays, U/S, labs)? Why? @ -None What meds were considered but not given or refused? Why? @ -None Did you discuss the management of the patient with other professionals (professionals i.e. , PA, MANUFACTURE SPECIALIST, lab, RT, psych nurse, psychiatric social worker supervisor, wall scraper, teacher, president and chief operating officer, shoe parts caser)? Give summary @ -[Sound physician group Was smoking cessation discussed for >3mins.? @ -No Was critical care preformed (if so, how long)? @ -No Were there social determinants of health that impacted care today? How? (Homelessness, low income, unemployed, alcoholism, drug addiction, transportation, low edu. Level, literacy, decrease access to med. care, fci, rehab)? @ -No Was there de-escalation of care discussed even if they declined (Discuss DNR or withdrawal of care, Hospice)? DNR status @ -No What co-morbidities impacted this encounter? (DM, HTN, Smoking, COPD, CAD, Cancer, CVA, ARF, Chemo, Hep., AIDS, mental health diagnosis, sleep apnea, morbid obesity)? @ -Gastric reflux, thyroid disease Was patient admitted / discharged? Hospital course, mention meds given and route, prescriptions, significant lab abnormalities, going to OR and other pertinent info. @ 62-year-old female presenting for evaluation of jaw pain, left arm pain. Patient did also reports some numbness there is no focal neurological deficit identified on exam. She had an abnormal stress test with reversible ischemia. She was sent in by her primary care physician. Her EKG is sinus rhythm without ST segment elevation. Chest x-ray is clear without acute findings. She has a normal CBC, normal CMP, negative initial troponin. She will be admitted for cardiology evaluation. Undiagnosed new problem with uncertain prognosis? @ -No Drug Therapy requiring intensive monitoring for toxicity (Heparin, Nitro, Insulin, Cardizem)? @ -No Were any procedures done? @ -No Diagnosis/symptom? @ Anginal equivalent, positive stress test Acute, or Chronic, or Acute on Chronic? @ Acute Uncomplicated (without systemic symptoms) or Complicated (systemic symptoms)? @ -Complicated Side effects of treatment? @ -No Exacerbation, Progression, or Severe Exacerbation? @ -No Poses a threat to life or bodily function? How? (Chest pain, [place], [place], pneumonia, PE, COPD, DKA, ARF, appy, cholecystitis, CVA, Diverticulitis, Homicidal, Suicidal, threat to staff... and all critical care pts) @ -Yes, cardiac ischemia, arrhythmia - Lab Data Result diagrams: 04/06/23 10:32 04/06/23 10:32 Lab Results 04/06/23 04/06/23 04/06/23 Range/Units 10:32 10:32 10:32 WBC 5.6 (3.8-10.6) k/uL RBC 4.48 (3.80-5.40) m/uL Hgb 12.9 (11.4-16.0) gm/dL Hct 39.5 (34.0-46.0) % MCV 88.2 (80.0-100.0) fL MCH 28.9 (25.0-35.0) pg MCHC 32.8 (31.0-37.0) g/dL RDW 13.6 (11.5-15.5) % Plt Count 190 (150-450) k/uL MPV 9.1 Neutrophils % 51 % Lymphocytes % 34 % Monocytes % 8 % Eosinophils % 3 % Basophils % 1 % Neutrophils # 2.9 (1.3-7.7) k/uL Lymphocytes # 1.9 (1.0-4.8) k/uL Monocytes # 0.5 (0-1.0) k/uL Eosinophils # 0.1 (0-0.7) k/uL Basophils # 0.0 (0-0.2) k/uL PT 10.9 (9.0-12.0) sec INR 1.0 (<1.2) APTT 23.8 (22.0-30.0) sec Sodium 139 (137-145) mmol/L Potassium 3.9 (3.5-5.1) mmol/L Chloride 104 (98-107) mmol/L Carbon Dioxide 27 (22-30) mmol/L Anion Gap 8 mmol/L BUN 13 (7-17) mg/dL Creatinine 0.58 (0.52-1.04) mg/dL Est GFR (CKD-EPI)AfAm >90 (>60 ml/min/1.73 sqM) Est GFR (CKD-EPI)NonAf >90 (>60 ml/min/1.73 sqM) Glucose 103 H (74-99) mg/dL Calcium 9.2 (8.4-10.2) mg/dL Magnesium 1.8 (1.6-2.3) mg/dL Total Bilirubin 0.4 (0.2-1.3) mg/dL AST 25 (14-36) U/L ALT 24 (4-34) U/L Alkaline Phosphatase 96 (38-126) U/L Troponin I (0.000-0.034) ng/mL Total Protein 6.8 (6.3-8.2) g/dL Albumin 4.1 (3.5-5.0) g/dL 04/06/23 Range/Units 10:32 WBC (3.8-10.6) k/uL RBC (3.80-5.40) m/uL Hgb (11.4-16.0) gm/dL Hct (34.0-46.0) % MCV (80.0-100.0) fL MCH (25.0-35.0) pg MCHC (31.0-37.0) g/dL RDW (11.5-15.5) % Plt Count (150-450) k/uL MPV Neutrophils % % Lymphocytes % % Monocytes % % Eosinophils % % Basophils % % Neutrophils # (1.3-7.7) k/uL Lymphocytes # (1.0-4.8) k/uL Monocytes # (0-1.0) k/uL Eosinophils # (0-0.7) k/uL Basophils # (0-0.2) k/uL PT (9.0-12.0) sec INR (<1.2) APTT (22.0-30.0) sec Sodium (137-145) mmol/L Potassium (3.5-5.1) mmol/L Chloride (98-107) mmol/L Carbon Dioxide (22-30) mmol/L Anion Gap mmol/L BUN (7-17) mg/dL Creatinine (0.52-1.04) mg/dL Est GFR (CKD-EPI)AfAm (>60 ml/min/1.73 sqM) Est GFR (CKD-EPI)NonAf (>60 ml/min/1.73 sqM) Glucose (74-99) mg/dL Calcium (8.4-10.2) mg/dL Magnesium (1.6-2.3) mg/dL Total Bilirubin (0.2-1.3) mg/dL AST (14-36) U/L ALT (4-34) U/L Alkaline Phosphatase (38-126) U/L Troponin I <0.012 (0.000-0.034) ng/mL Total Protein (6.3-8.2) g/dL Albumin (3.5-5.0) g/dL Disposition Clinical Impression: Positive cardiac stress test Disposition: ADMITTED IP TO THIS HOSP Condition: Stable Is patient prescribed a controlled substance at d/c from ED?: No Referrals: Herman Castellanos MD [Primary Care Provider] - 1-2 days Time of Disposition: 12:10
--- NOTE | 2023-04-06 10:49 | CT ---
EXAMINATION TYPE: CT brain wo con DATE OF EXAM: 04/06/2023 COMPARISON: None INDICATION: c/o htn DLP: 1064.4 mGycm, Automated exposure control for dose reduction was used. CONTRAST: None CT of the brain is performed utilizing 3 mm thick sections through the posterior fossa and 3 mm thick sections through the remaining calvarium. Study is performed within 24 hours of arrival to the hosp ital. No abnormal hyperdensity is present to suggest an acute intracranial hemorrhage. No mass lesion is evident. No acute infarcts are evident. Ventricles and sulci are appropriate for the patient age. Mucosal thickening is within the right maxillary sinus. Remaining paranasal sinuses appear clear. The re is left septal deviation with septal spurring. Mastoid air cells within the field of view are itzel r. IMPRESSIONS: 1. No acute intracranial process. Follow up MRI can be performed as clinically indicated.
[2023-04-06 10:51] LABS: Basophils % (A) 1 %; Eosinophils # (A) 0.1 k/uL (0-0.7); Eosinophils % (A) 3 %; HCT 39.5 % (34.0-46.0); HGB 12.9 gm/dL (11.4-16.0); Lymphocytes # (A) 1.9 k/uL (1.0-4.8); Lymphocytes % (A) 34 %; MCH 28.9 pg (25.0-35.0); MCHC 32.8 g/dL (31.0-37.0); MCV 88.2 fL (80.0-100.0); Mean Platelet Volume 9.1; Monocytes # (A) 0.5 k/uL (0-1.0); Monocytes % (A) 8 %; Neutrophils # (A) 2.9 k/uL (1.3-7.7); Neutrophils % (A) 51 %; Platelet Count 190 k/uL (150-450); RBC 4.48 m/uL (3.80-5.40); RDW 13.6 % (11.5-15.5); WBC 5.6 k/uL (3.8-10.6)
[2023-04-06 11:02] LABS: ALT 24 U/L (4-34); AST 25 U/L (14-36); African American GFR (CKD) >90 (>60 ml/min/1.73 sqM); Albumin 4.1 g/dL (3.5-5.0); Alkaline Phosphatase 96 U/L (38-126); Anion Gap 8 mmol/L; Blood Urea Nitrogen 13 mg/dL (7-17); Calcium 9.2 mg/dL (8.4-10.2); Carbon Dioxide 27 mmol/L (22-30); Chloride 104 mmol/L (98-107); Glucose 103 mg/dL (74-99); Magnesium 1.8 mg/dL (1.6-2.3); Non-African American GFR(CKD) >90 (>60 ml/min/1.73 sqM); Potassium 3.9 mmol/L (3.5-5.1); Sodium 139 mmol/L (137-145); Total Bilirubin 0.4 mg/dL (0.2-1.3); Total Protein 6.8 g/dL (6.3-8.2)
--- NOTE | 2023-04-06 11:02 | XR ---
EXAMINATION TYPE: XR chest 2V DATE OF EXAM: 04/06/2023 COMPARISON: NONE TECHNIQUE: PA and lateral views submitted. HISTORY: Chest pain FINDINGS: The lungs are clear and there is no pneumothorax, pleural effusion, or focal pneumonia. Heart size normal and no overt failure. Osseous structures demonstrate hypertrophic and degenerative changes of the spine. There is a hiatal hernia. Mild hyperinflation of the lungs. IMPRESSION: 1. No acute process.
[2023-04-06 11:03] LABS: Partial Thromboplastin Time 23.8 sec (22.0-30.0); Prothrombin Time 10.9 sec (9.0-12.0)
[2023-04-06] MEDS ORDERED: HEPARIN SODIUM 1,000 UN/ML (10ML VL) IV ONE (11:22)
[2023-04-06] MEDS ORDERED: ASPIRIN 325 MG TAB PO STA (11:22)
[2023-04-06] MEDS ORDERED: HEPARIN SODIUM 1,000 UN/ML (10ML VL) IV PRN (11:22)
[2023-04-06] MEDS: SODIUM CHLORIDE 0.9% 1,000 ML IV SCH (11:52)
[2023-04-06] MEDS: HEPARIN SOD,PORK IN 0.45% NACL 25,000 UNIT in 0.45% NACL 1 250ML.BAG IV SCH (11:52)
[2023-04-06] MEDS ORDERED: ACETAMINOPHEN TAB 325 MG TAB PO PRN (12:03)
[2023-04-06] MEDS ORDERED: ONDANSETRON 4 MG/2 ML VIAL IVP PRN (12:03)
[2023-04-06] MEDS ORDERED: NALOXONE 0.4 MG/ML 1 ML VIAL IV PRN (12:03)
[2023-04-06] MEDS ORDERED: NITROGLYCERIN SL TABS 0.4 MG TAB SUBLINGUAL PRN (15:15)
--- NOTE | 2023-04-06 15:18 | P.HPIM ---
History of Present Illness H&P Date: 04/06/23 Chief Complaint: jaw and left arm pain 62-year-old woman with a medical history of hypothyroidism, hyperlipidemia, iron deficiency anemia, depression, diabetes presented for left arm and jaw pain. Patient had been recently worked up for coronary artery disease with stress test and was due to have this test read today when it returned positive. This morning, she woke up with left arm and jaw pain, but decided to wait until she had her stress test read, however, given that her pain did not resolve she decided to come to the emergency room for further evaluation. While she was in the hospital, she was also told that her stress test did show history of infarct as well as small area of reversible ischemia. During her episode of jaw and arm pain, she also reports intermittent episodes of diaphoresis, palpitations, nausea. She also reports intermittent shortness of breath upon ambulation. She denies fevers, chills, vomiting, abdominal pain, constipation, diarrhea, dysuria, dyschezia, numbness/weakness of extremities. She denies cough. In the emergency room, patient was afebrile, 160/81, heart rate 70, 98% on room air. CBC is unremarkable. Basic metabolic panel is unremarkable. Liver function tests are unremarkable. Initial troponin is less than 0.012. Coags are unremarkable. EKG showed normal sinus rhythm, normal axis, no evidence of ischemia. Brain CT showed no acute intracranial process. Chest x-ray was negative for an acute process, showed clear parenchyma bilaterally, normal sized heart, good inspiration, exposure. Case was discussed with emergency room physician, decision was made to admit the patient to the hospital for left arm and jaw pain. All Systems reviewed and pertinent positives and negatives noted in HPI, all other symptoms are negative Gen: in no apparent distress, resting comfortably in bed Eyes: PERRL, no scleral injection or icterus HENT: normocephalic, atraumatic, good hearing acuity, moist mucous membranes Neck: no tracheal deviation, full range of motion Resp: good air exchange, breathing comfortably with no accessory muscle use, no tactile fremitus CVS: good distal perfusion x 4, no pitting edema GI: soft, NTTP, ND, no hepatosplenomegaly : no suprapubic tenderness, no CVAT, jimenez catheter not present MSK: no clubbing, no cyanosis, no noted contractures of extremities Skin: no noted rashes, petechiae; temperature of skin is appropriate Neuro: moving all extremities without signs of weakness, CN II-XII intact Psych: cooperative, euthymic mood, insight and judgment intact Assessment: Left arm and jaw pain Positive stress test Hypertension Hyperlipidemia Hypothyroidism Iron deficiency anemia Diabetes type 2 Depression Plan: Vital signs reviewed and noted in the HPI Lab work reviewed and noted in the HPI EKG and CXR are personally interpreted and noted in the HPI Case was discussed with the Emergency Room provider and decision was made to admit the patient for left arm and jaw pain CBC, basic metabolic panel, magnesium ordered for tomorrow Lipid panel, A1c, TSH ordered Echocardiogram deferred at this time due to recent echo Cardiology consulted Continue aspirin 81 mg Start atorvastatin 80 mg daily Start nitroglycerin 0.4 mg sublingual when necessary Continue heparin drip, monitor PTT for toxicity Start metoprolol 12.5 mg twice a day Patient is full code Past Medical History Past Medical History: GERD/Reflux, Thyroid Disorder Additional Past Medical History / Comment(s): Hx. H Pylori. Recent vomiting and diarhrea and bleeding from rectum. History of Any Multi-Drug Resistant Organisms: None Reported Past Surgical History: Orthopedic Surgery, Tubal Ligation Additional Past Surgical History / Comment(s): FINGER SX, pilonidal cyst r emoved. Past Anesthesia/Blood Transfusion Reactions: Postoperative Nausea & Vomiting (PONV) Past Psychological History: No Psychological Hx Reported Smoking Status: Never smoker Past Alcohol Use History: Occasional Past Drug Use History: None Reported - Past Family History Mother Family Medical History: No Reported History Medications and Allergies Home Medications Medication Instructions Recorded Confirmed Type Levothyroxine Sodium [Synthroid] 75 mcg PO QAM 09/16/15 04/06/23 History Omeprazole [PriLOSEC] 40 mg PO AC-BRKFST 04/16/22 04/06/23 History Escitalopram [Lexapro] 5 mg PO DAILY 04/06/23 04/06/23 History Ferrous Sulfate [Feosol] 325 mg PO Q2D 04/06/23 04/06/23 History Rosuvastatin Calcium 5 mg PO HS 04/06/23 04/06/23 History Semaglutide [Wegovy] 0.25 mg SQ MO 04/06/23 04/06/23 History Vitamin B Complex 1 cap PO DAILY 04/06/23 04/06/23 History Allergies Allergy/AdvReac Type Severity Reaction Status Date / Time No Known Allergies Allergy Verified 04/06/23 11:51 Physical Exam Osteopathic Statement: *. No significant issues noted on an osteopathic structural exam other than those noted in the History and Physical/Consult. Vitals: Vital Signs Temp Pulse Pulse Resp BP BP Pulse Ox 04/06/23 14:17 67 18 142/92 99 04/06/23 12:20 64 18 146/85 98 04/06/23 11:04 68 18 146/88 99 04/06/23 10:06 97.9 F 70 20 160/81 98 Intake and Output 04/06/23 04/06/23 04/06/23 06:59 14:59 22:59 Other: # Voids 1 Weight 78.471 kg Results CBC & Chem 7: 04/06/23 10:32 04/06/23 10:32 Labs: Abnormal Lab Results - Last 24 Hours (Table) 04/06/23 Range/Units 10:32 Glucose 103 H (74-99) mg/dL Thrombosis Risk Factor Assmnt - Choose All That Apply Any of the Below Risk Factors Present?: Yes Each Factor Represents 1 point: Age 41-60 years Other Risk Factors: No Thrombosis Risk Factor Assessment Total Risk Factor Score: 1 Thrombosis Risk Factor Assessment Level: Low Risk
[2023-04-06] MEDS: METOPROLOL TARTRATE 12.5 MG TAB PO SCH (21:22)
[2023-04-07] MEDS: SODIUM CHLORIDE 0.9% 1,000 ML IV SCH (04:24)
[2023-04-07 06:19] LABS: African American GFR (CKD) >90 (>60 ml/min/1.73 sqM); Anion Gap 5 mmol/L; Blood Urea Nitrogen 12 mg/dL (7-17); Calcium 8.8 mg/dL (8.4-10.2); Carbon Dioxide 28 mmol/L (22-30); Chloride 107 mmol/L (98-107); Glucose 103 mg/dL (74-99); Non-African American GFR(CKD) >90 (>60 ml/min/1.73 sqM); Potassium 4.3 mmol/L (3.5-5.1); Sodium 140 mmol/L (137-145)
[2023-04-07] MEDS ORDERED: HEPARIN SODIUM,PORCINE 10,000 UNIT in SODIUM CHLORIDE 0.9% 1,000 ML IRRIGATION PRN (07:00)
[2023-04-07] MEDS ORDERED: HEPARIN SODIUM,PORCINE 2,500 UNIT in SODIUM CHLORIDE 0.9% 250 ML IRRIGATION PRN (07:00)
[2023-04-07] MEDS ORDERED: NITROGLYCERIN SL TABS 0.4 MG TAB SUBLINGUAL PRN (08:13)
[2023-04-07] MEDS ORDERED: ALPRAZolam 0.5 MG TAB PO PRN (08:13)
[2023-04-07] MEDS ORDERED: ATORVASTATIN 80 MG TAB PO STA (08:13)
[2023-04-07] MEDS ORDERED: ALPRAZolam 0.25 MG TAB PO PRN (08:13)
[2023-04-07] MEDS ORDERED: ASPIRIN 325 MG TAB PO STA (08:13)
[2023-04-07 08:22] VITALS: RESP 18; TEMP 98.3
[2023-04-07] MEDS ORDERED: ASPIRIN 81 MG PO SCH (09:00)
[2023-04-07] MEDS ORDERED: HEPARIN SODIUM 1,000 UN/ML (10ML VL) ONE (09:57)
[2023-04-07] MEDS ORDERED: VERAPAMIL 2.5 MG/ML 2 ML AMP ONE (09:57)
[2023-04-07] MEDS: MIDAZOLAM 2 MG/2 ML VIAL IVP ONE ×2 (10:15→10:17)
[2023-04-07] MEDS ORDERED: IV FLUID CONTINUATION 1,000 ML IV ONE (10:15)
[2023-04-07] MEDS ORDERED: LIDOCAINE 1% INJ 10MG/ML (5 ML VIAL-PF) SQ ONE (10:17)
[2023-04-07] MEDS ORDERED: fentaNYL (PF) 50 MCG/ML 2 ML AMP ONE (10:17)
[2023-04-07] MEDS ORDERED: fentaNYL (PF) 50 MCG/ML 2 ML AMP IVP ONE (10:19)
[2023-04-07] MEDS: VERAPAMIL SYRINGE (5 MG/10 ML) INTRAARTER ONE ×2 (10:23→10:47)
[2023-04-07] MEDS ORDERED: HEPARIN SODIUM 1,000 UN/ML (10ML VL) IVP ONE (10:24)
[2023-04-07] MEDS ORDERED: IOPAMIDOL-370 100ML BTL INJ ONE ×2 (10:44→10:46)
[2023-04-07] MEDS ORDERED: LEVOTHYROXINE 75 MCG TAB PO SCH (11:30)
[2023-04-07] MEDS ORDERED: ESCITALOPRAM 5 MG TAB PO SCH (11:30)
[2023-04-07 11:37] LABS: Chol/HDL Ratio 2.48 Ratio; LDL Cholesterol,Calculated 58.7 mg/dL (0.0-131.0); VLDL Calculation 12.86 mg/dL (5.00-40.00)
[2023-04-07] MEDS: METOPROLOL TARTRATE 12.5 MG TAB PO SCH (12:53)
[2023-04-07] MEDS: HEPARIN SOD,PORK IN 0.45% NACL 25,000 UNIT in 0.45% NACL 1 250ML.BAG IV SCH (13:25)
--- NOTE | 2023-04-07 13:39 | P.DS ---
Providers Date of admission: 04/06/23 12:05 Expected date of discharge: 04/07/23 Attending physician: Blanche Masters MD Consults: 04/06/23 12:03 Consult Physician Routine Consulting Provider: Garret Hernandez Consult Reason/Comments: Positive stress test Do you want consulting provider notified?: Yes Primary care physician: [facility] Course: Assessment: Left arm and jaw pain Positive stress test Hypertension Hyperlipidemia Hypothyroidism Iron deficiency anemia Diabetes type 2 Depression 62-year-old woman with a medical history of hypothyroidism, hyperlipidemia, iron deficiency anemia, depression, diabetes presented for left arm and jaw pain. In the emergency room, patient was afebrile, 160/81, heart rate 70, 98% on room air. CBC is unremarkable. Basic metabolic panel is unremarkable. Liver function tests are unremarkable. Initial troponin is less than 0.012. Coags are unremarkable. EKG showed normal sinus rhythm, normal axis, no evidence of ischemia. Brain CT showed no acute intracranial process. Chest x-ray was negative for an acute process, showed clear parenchyma bilaterally, normal sized heart, good inspiration, exposure. Case was discussed with emergency room physician, decision was made to admit the patient to the hospital for left arm and jaw pain. Patient was seen and evaluated by cardiology, recommended for left heart catheterization. This was completed on 04/07 and did not show disease matching perfusion defect on the recent stress test. She did have non- obstructive CAD in the RCA and was recommended for medical management and appropriate follow up. I spent 38 minutes coordinating this discharge on 04/07 Gen: in no apparent distress, resting comfortably in bed Eyes: PERRL, no scleral injection or icterus HENT: normocephalic, atraumatic, good hearing acuity, moist mucous membranes Neck: no tracheal deviation, full range of motion Resp: good air exchange, breathing comfortably with no accessory muscle use, no tactile fremitus CVS: good distal perfusion x 4, no pitting edema GI: soft, NTTP, ND, no hepatosplenomegaly : no suprapubic tenderness, no CVAT, jimenez catheter not present MSK: no clubbing, no cyanosis, no noted contractures of extremities Skin: no noted rashes, petechiae; temperature of skin is appropriate Neuro: moving all extremities without signs of weakness, CN II-XII intact Psych: cooperative, euthymic mood, insight and judgment intact Patient Condition at Discharge: Good Plan - Discharge Summary Discharge Rx Participant: Yes New Discharge Prescriptions: No Action Levothyroxine Sodium [Synthroid] 75 mcg PO QAM Omeprazole [PriLOSEC] 40 mg PO AC-BRKFST Rosuvastatin Calcium 5 mg PO HS Escitalopram [Lexapro] 5 mg PO DAILY Semaglutide [Wegovy] 0.25 mg SQ MO Ferrous Sulfate [Feosol] 325 mg PO Q2D Vitamin B Complex 1 cap PO DAILY Discharge Medication List Levothyroxine Sodium [Synthroid] 75 mcg PO QAM 09/16/15 [History] Omeprazole [PriLOSEC] 40 mg PO AC-BRKFST 04/16/22 [History] Escitalopram [Lexapro] 5 mg PO DAILY 04/06/23 [History] Ferrous Sulfate [Feosol] 325 mg PO Q2D 04/06/23 [History] Rosuvastatin Calcium 5 mg PO HS 04/06/23 [History] Semaglutide [Wegovy] 0.25 mg SQ MO 04/06/23 [History] Vitamin B Complex 1 cap PO DAILY 04/06/23 [History] Follow up Appointment(s)/Referral(s): Greg Loredo MD [STAFF PHYSICIAN] - 1 Week Herman Catsellanos MD [Primary Care Provider] - 1-2 days Patient Instructions/Handouts: *Surgery [facility] - After Heart Catheterization - [employer] [facility] Analyst Instructions, Cardiac Stress Test (DC), After Radial Heart Catheterization (GEN)
[2023-04-07 16:46] VITALS: BP 114/73; PULSE 65
--- NOTE | 2023-04-07 17:16 | CONS ---
CONSULTATION HISTORY OF PRESENT ILLNESS: This is a 62-year-old lady, a patient of Dr. Castellanos, who has seen Dr. Loredo in the office last in November 2021. She was seen for a preoperative evaluation and was cleared for some noncardiac surgery. At that time, echo revealed good systolic function. However, she came into the hospital after an abnormal stress test. Apparently, she received a phone call from her primary care physician. She complained of some tingling on the left arm and jaw area and had a stress test performed, and this was performed on April 05, and apparently, it was called to be abnormal with an area of fixed defect in the anterior wall as well as a small area of reversibility. Ejection fraction was well preserved. Wall motion was well preserved. I reviewed the nuclear scan. I felt this was more of a soft tissue attenuation. However, the patient did not have any chest pain. She was advised to go to the ER and has been hospitalized. Her initial troponin is normal. EKG does not reveal any significant abnormalities, suggests normal sinus rhythm without acute changes. Her tingling sensation and the jaw discomfort have also resolved. The patient had an echocardiogram that was performed on March 22, which revealed normal systolic function with a small perimembranous VSD. She had an echo prior to that, which did reveal also good systolic function. The patient was really asymptomatic, but because of abnormal stress test with ischemia/old PA in the LAD distribution, I recommended a cardiac catheterization after due discussion regarding risks, benefits, and options. PAST MEDICAL HISTORY: Remarkable for some degenerative joint disease, hyperlipidemia, gastroesophageal reflux disease, and hypothyroidism. MEDICATIONS AT HOME: Include: 1. Rosuvastatin 5 mg daily. 2. Synthroid 75 mcg daily. She also takes semaglutide for weight loss and iron supplements. ALLERGIES: None. PHYSICAL EXAMINATION: VITAL SIGNS: Blood pressure is 118/70, pulse rate is 68 per minute. HEENT: Unremarkable. Fundus was not examined by me. NECK: Supple. No JVD. I do not hear a carotid bruit. HEART: Reveals S1 and S2 heard normally. No rub, murmur, or gallop. LUNGS: Reveal decent air entry bilaterally. ABDOMEN: Soft and nontender. EXTREMITIES: Lower extremities reveal palpable pulses. No edema. CENTRAL NERVOUS SYSTEM: Normal. DIAGNOSTIC STUDIES: EKG revealed sinus mechanism, no acute changes. IMPRESSION: 1. Atypical chest pain. 2. Abnormal stress test. 3. Hypothyroidism. 4. Hyperlipidemia. RECOMMENDATIONS: I recommended coronary angiography. I explained to the patient rationale, risks, benefits, and options, and she understood all details and wished to proceed with the procedure. CLIFF / SARAH: [id number] /
--- NOTE | 2023-04-07 17:49 | CC ---
CARDIAC CATHETERIZATION REPORT DATE OF SERVICE: 04/07/2023. PROCEDURES PERFORMED: Left heart catheterization, coronary angiography, and aortography. PERFORMED BY: Dr. Willie Lindo. Moderate conscious sedation time was 30 minutes. The patient was administered Versed and fentanyl. Oxygen saturation, hemodynamics, and EKG were monitored closely. CLINICAL INFORMATION: Ms. Isidra Dueñas is a 62-year-old lady, who has been having very atypical symptoms. She has mild hypercholesterolemia and hypothyroidism. She saw Dr. Loredo in November 2021. Her primary care physician is Dr. Castellanos. Because of a nondescript tingling in the left upper extremity and also jaw area, she had a stress Cardiolite scan, and this was performed on April 05Wednesday. This was a Lexiscan stress test. There was a question of ischemia in the LAD distribution along with a fixed defect with normal contractility. In view of abnormal stress test and nondescript symptoms, she was advised cardiac catheterization after she has been hospitalized last night. PROCEDURE NOTE: Under strict aseptic precautions and local anesthesia, a 6-Syriac introducer was placed in the right radial artery. Using JL3.5 catheter, I performed left-sided coronary angiography. Using the right Parveen catheter of 4.0 curve, I was able to check LV pressures, but I could not get a selective injection of the RCA. Subselective injection was obtained. The RCA seemed to be coming from the posterior location. I performed an aortogram, and this was performed in 30-degree ALBANIAN projection. Study suggests the right coronary artery is very small, nondominant, comes from the posterior location, and appears to be patent with good flow. The sheath was taken out, and TR band was applied as per protocol, and she was sent to the room in a stable condition. CARDIAC CATHETERIZATION FINDINGS: The left ventricular end-diastolic pressure was about 10 to 12 mmHg without any gradient across aortic valve. CORONARY ANGIOGRAPHY FINDINGS: 1. LEFT MAIN CORONARY ARTERY: Short, patent vessel, free of significant disease, immediately bifurcates into LAD and circumflex. No significant disease. 2. LEFT ANTERIOR DESCENDING CORONARY ARTERY: Good-caliber vessel, extends along the anterior wall, gives off septal and diagonal branches, runs all the way to the apex, has minor irregularities, no significant disease. 3. LEFT POSTERIOR CIRCUMFLEX CORONARY ARTERY: Dominant vessel, gives off 2 obtuse marginal branches that are free of significant disease. Distally bifurcates into large PDA and PLV, both of which supply a fair amount of myocardium. No significant disease in the dominant circumflex. 4. RIGHT CORONARY ARTERY: Selective injection of RCA was not performed. I performed an aortogram, which revealed that this is a small artery that comes from the posterior location, nondominant, but flow is good. Subselective injection suggests no significant disease. AORTOGRAM: This was performed in a 30-degree ALBANIAN projection. Revealed a normal-sized aortic root. No aortic regurgitation. Left coronary seems to be free of significant disease and comes off very well. The right coronary comes from a posterior location, small in caliber, nondominant, limited amount of myocardium supplied by it, brisk flow noted with subselective aortogram, but no obstruction. FINAL IMPRESSION: This patient has a left dominant system, normal filling pressures, no gradient. Subselective injection of right coronary artery, which is nondominant, suggests no significant disease. Left system is free of significant disease. RECOMMENDATIONS: Findings were discussed with the patient. I also spoke to her daughter. She can be discharged today and continue lipid-lowering statin agents and follow up with her PCP. She will see Dr. Loredo in 1 week. Discussed my thoughts in detail with the patient. Risk factor modification issues advised. MMODL / IJN: [id number] /
[2023-04-08] MEDS ORDERED: ATORVASTATIN 80 MG TAB PO SCH (09:00)
== END 2023-04-07 18:35 | disposition home or self-care (01) ==
LOC: EC 10:00 → 6NMEDSUR 12:05 → UNDODISOB 15:14
PROVIDERS: ADMIT Internal Medicine; ATTEND Internal Medicine
DX: R68.84 Jaw pain (principal); M79.602 Pain in left arm; R20.2 Paresthesia of skin; R94.39 Abnormal result of other cardiovascular function study; R61 Generalized hyperhidrosis; R00.2 Palpitations; I10 Essential (primary) hypertension; E11.9 Type 2 diabetes mellitus without complications; E78.00 Pure hypercholesterolemia, unspecified; K21.9 Gastro-esophageal reflux disease without esophagitis; E03.9 Hypothyroidism, unspecified; D50.9 Iron deficiency anemia, unspecified; F32.A Depression, unspecified; I25.2 Old myocardial infarction; Q21.0 Ventricular septal defect; M19.90 Unspecified osteoarthritis, unspecified site; Z79.890 Hormone replacement therapy; Z79.899 Other long term (current) drug therapy; Z87.19 Personal history of other diseases of the digestive system; Z98.51 Tubal ligation status; Z98.890 Other specified postprocedural states
CPT/HCPCS: 96366 ×3; 96376; 96365; 99285; 36415; 94760; 93005; 93458; 93567; 80061; 80053; 80048; 84443; 83735 ×2; 84484 ×2; 85025; 85610; 85730 ×2; 83036; 71046; 70450; G0378 ×2; C1769; C1894; J2250; J2001; J3010; J1644 ×3; Q9967

== ENCOUNTER → 2023-04-06 | Outpatient (CLI) | payer MEDICAID | LOC: CPPFTMAIN 08:43 | PROVIDERS: ATTEND Family Medicine | DX: R06.09 Other forms of dyspnea (principal); R10.11 Right upper quadrant pain; Z79.82 Long term (current) use of aspirin | CPT/HCPCS: 94060; 94726; 94729 ==

== ENCOUNTER → 2023-05-10 | Outpatient (CLI) | payer OTHER ==
--- NOTE | 2023-05-10 12:40 | MR ---
EXAMINATION TYPE: MR brain wo con DATE OF EXAM: 05/10/2023 COMPARISON: CT brain 04/06/2023 HISTORY: Left side weakness/numbness, memory loss, TIA CONTRAST: Performed utilizing 0 mL intravenous Gadavist gadolinium contrast. TECHNIQUE: Multiplanar, multiecho imaging on a 3.0 Liliana magnet is performed through the brain. Stud y is performed within 24 hours of arrival to the hospital. The craniovertebral junction is normal. The pituitary is normal. Diffusion-weighted imaging is performed. No abnormal hyperintensity is present to suggest an acute i ntracranial infarct or acute ischemic change. There is a 0.4 cm subcortical white matter change in left proximal temporal lobe. Series 501 image 16 . Ventricles and sulci are appropriate for the patient age. A small patent cavum septum lucidum is pres ent, a normal variant. Mucosal thickening is in the bilateral maxillary sinuses. Mild mucosal thickenings within ethmoid air cells. Frontal sinuses have very minimal mucosal thickening. Mastoid air cells appear clear. IMPRESSIONS: 1. Single nonspecific white matter change left proximal temporal lobe. 2. No suspicious acute intracranial changes. 3. Mild mucosal thickening within maxillary sinuses and to a lesser degree ethmoid and frontal sinuse s. No suspicious air-fluid levels are present. Consider mild chronic sinusitis
== END | disposition home or self-care (01) ==
LOC: RADMRIMAIN 08:20
PROVIDERS: ATTEND Family Medicine
DX: G45.9 Transient cerebral ischemic attack, unspecified (principal); J32.9 Chronic sinusitis, unspecified; R90.82 White matter disease, unspecified
CPT/HCPCS: 70551

== ENCOUNTER → 2023-06-18 | Outpatient (CLI) | payer OTHER ==
--- NOTE | 2023-06-18 11:56 | US ---
EXAMINATION TYPE: US carotid duplex BILAT DATE OF EXAM: 06/18/2023 COMPARISON: NONE CLINICAL INDICATION: Female, 62 years old with history of G45.9 TRANSIENT CEREBRAL ISCHEMIC ATTACK; T IA TECHNIQUE: Carotid duplex ultrasound examination. Indirect Doppler criteria was utilized. FINDINGS: EXAM MEASUREMENTS: RIGHT: Peak Systolic Velocity (PSV) cm/sec ----- Right CCA: 69.6 ----- Right ICA: 100.1 ----- Right ECA: 143.8 ICA/CCA ratio: 1.4 RIGHT: End Diastole cm/sec ----- Right CCA: 18.7 ----- Right ICA: 40.5 ----- Right ECA: 25.3 LEFT: Peak Systolic Velocity (PSV) cm/sec ----- Left CCA: 102.3 ----- Left ICA: 94.4 ----- Left ECA: 110.1 ICA/CCA ratio: 0.9 LEFT: End Diastole cm/sec ----- Left CCA: 27.4 ----- Left ICA: 37.2 ----- Left ECA: 23.4 VERTEBRALS (direction of flow): Right Vertebral: Antegrade Left Vertebral: Antegrade Rhythm: Normal CHAINSTITCH ZIPPER SETTER NOTES: No significant stenosis seen IMPRESSION: There is no evidence for hemodynamically significant stenosis. Criteria for Assigning % of Stenosis / Diameter reduction (Estimation based on the indirect measurements of the internal carotid artery velocities (ICA PSV). 1. Normal (no stenosis)=ICA PSV < 125 cm/s: ratio < 2.0: ICA EDV<40 cm/s. 2. Less than 50% stenosis=ICA PSV < 125 cm/s: ratio < 2.0: ICA EDV<40 cm/s. 3. 50 to 69% stenosis=ICA PSV of 125 to 230 cm/s: ration 2.0 ? 4.0: ICA EDV 40-100 cm/s. 4. Greater than 70% stenosis to near occlusion= ICA PSV > 230 cm/s: ratio > 4.0: ICA EDV > 100 cm/s. 5. Near occlusion= ICA PSV velocities may be low or undetectable: variable ratio and ICA EDV. 6. Total occlusion=unable to detect flow.
== END | disposition home or self-care (01) ==
LOC: RADUSWWP 10:58
PROVIDERS: ATTEND Family Medicine
DX: G45.9 Transient cerebral ischemic attack, unspecified (principal)
CPT/HCPCS: 93880

== ENCOUNTER 2023-10-29 14:30 | Emergency (ER) | payer MEDICARE, OTHER ==
[2023-10-29 15:03] VITALS: TEMP 97.9
--- NOTE | 2023-10-29 15:57 | ED ---
General Adult HPI - General Chief complaint: Neuro Symptoms/Deficit Stated complaint: hypertension-sent by PCP Time Seen by Provider: 10/29/23 15:10 Source: patient Mode of arrival: ambulatory Limitations: no limitations - History of Present Illness Initial comments: 63-year-old female brought in under the direction of her primary care doctor. States that for the past week she has had numbness and tingling to her left cheek and left lower leg. She has had high blood pressure. She went into her primary care office today. They felt that the patient had some left-sided facial droop. They were concerned for stroke and therefore recommended that the patient come into the emergency department. She does admit to previous history of TIA. Denies any speech deficit. Does admit to headache. No visual changes. She takes an aspirin every day. No other alleviating, precipitating or modifying factors - Related Data Home Medications Medication Instructions Recorded Confirmed Levothyroxine Sodium [Synthroid] 75 mcg PO DAILY 09/16/15 10/29/23 Escitalopram [Lexapro] 5 mg PO DAILY 04/06/23 10/29/23 Ferrous Sulfate [Iron (65 MG 325 mg PO Q2D 04/06/23 10/29/23 Elemental)] Rosuvastatin Calcium 5 mg PO HS 04/06/23 10/29/23 Omeprazole [PriLOSEC] 40 mg PO DAILY 10/29/23 10/29/23 Previous Rx's Medication Instructions Recorded Aspirin 81 mg PO DAILY #30 tab 04/07/23 Atorvastatin [Lipitor] 20 mg PO HS #30 tablet 04/07/23 Allergies Allergy/AdvReac Type Severity Reaction Status Date / Time No Known Allergies Allergy Verified 10/29/23 17:52 Review of Systems ROS Statement: Those systems with pertinent positive or pertinent negative responses have been documented in the HPI. ROS Other: All systems not noted in ROS Statement are negative. Past Medical History Past Medical History: GERD/Reflux, Thyroid Disorder Additional Past Medical History / Comment(s): Hx. H Pylori. Recent vomiting and diarhrea and bleeding from rectum. History of Any Multi-Drug Resistant Organisms: None Reported Past Surgical History: Orthopedic Surgery, Tubal Ligation Additional Past Surgical History / Comment(s): FINGER SX, pilonidal cyst removed. Past Anesthesia/Blood Transfusion Reactions: Postoperative Nausea & Vomiting (PONV) Past Psychological History: No Psychological Hx Reported Smoking Status: Never smoker Past Alcohol Use History: Occasional Past Drug Use History: None Reported - Past Family History Mother Family Medical History: No Reported History General Exam Limitations: no limitations General appearance: alert, in no apparent distress Head exam: Present: atraumatic, normocephalic, normal inspection Eye exam: Present: normal appearance, PERRL, EOMI. Absent: scleral icterus, conjunctival injection, periorbital swelling ENT exam: Present: normal exam, mucous membranes moist, other (mild left lower facial droop) Neck exam: Present: normal inspection. Absent: tenderness, meningismus, lymphadenopathy Respiratory exam: Present: normal lung sounds bilaterally. Absent: respiratory distress, wheezes, rales, rhonchi, stridor Cardiovascular Exam: Present: regular rate, normal rhythm, normal heart sounds. Absent: systolic murmur, diastolic murmur, rubs, gallop, clicks GI/Abdominal exam: Present: soft, normal bowel sounds. Absent: distended, tenderness, guarding, rebound, rigid Extremities exam: Present: normal inspection, full ROM, normal capillary refill. Absent: tenderness, pedal edema, joint swelling, calf tenderness Back exam: Present: normal inspection Neurological exam: Present: alert, oriented X3, CN II-XII intact Psychiatric exam: Present: normal affect, normal mood Skin exam: Present: warm, dry, intact, normal color. Absent: rash Course Vital Signs 10/29/23 10/29/23 10/29/23 14:39 15:53 17:26 Temperature 97.9 F Pulse Rate 71 72 Respiratory 72 H 21 Rate Blood Pressure 182/91 153/89 167/86 O2 Sat by Pulse 98 98 Oximetry Medical Decision Making - Medical Decision Making Was pt. sent in by a medical professional or institution (, PA, MATERIAL REQUISITIONER, urgent care, hospital, or long term...) When possible be specific @ -PCP Did you speak to anyone other than the patient for history (EMS, parent, family, police, friend...)? What history was obtained from this source @ -No Did you review nursing and triage notes (agree or disagree)? Why? @ -I reviewed and agree with nursing and triage notes Were old charts reviewed (outside hosp., previous admission, EMS record, old EKG, old radiological studies, urgent care reports/EKG's, long term records)? Report findings @ -No old charts were reviewed Differential Diagnosis (chest pain, altered mental status, abdominal pain women, abdominal pain men, vaginal bleeding, weakness, fever, dyspnea, syncope, headache, dizziness, GI bleed, back pain, seizure, CVA, palpatations, mental health, musculoskeletal)? @ -Differential CVA Ischemic stroke, hemorrhagic stroke, brain tumor, atypical migraine, Wernicke's encephalopathy, seizure, multiple sclerosis, meningitis, encephalitis, hypoglycemia, Guillain-Cesar, electrolytes disturbance, myasthenia gravis.... This is not meant to be an all-inclusive list EKG interpreted by me (3pts min.). @ -Yes and demonstrates sinus rhythm with a rate of 67. ME interval 189. QRS 96. QTC of 422. No acute ST segment elevations or depressions X-rays interpreted by me (1pt min.). @ -no acute process CT interpreted by me (1pt min.). @ -no acute process U/S interpreted by me (1pt. min.). @ -None done What testing was considered but not performed or refused? (CT, X-rays, U/S, labs)? Why? @ -None What meds were considered but not given or refused? Why? @ -None Did you discuss the management of the patient with other professionals (professionals i.e. , PA, MATERIAL REQUISITIONER, lab, RT, psych nurse, social organization professor, produce shipper, teacher, fourth officer, case work aide)? Give summary @ -No Was smoking cessation discussed for >3mins.? @ -No Was critical care preformed (if so, how long)? @ -No Were there social determinants of health that impacted care today? How? (Homelessness, low income, unemployed, alcoholism, drug addiction, transportation, low edu. Level, literacy, decrease access to med. care, prison, rehab)? @ -No Was there de-escalation of care discussed even if they declined (Discuss DNR or withdrawal of care, Hospice)? DNR status @ -No What co-morbidities impacted this encounter? (DM, HTN, Smoking, COPD, CAD, Cancer, CVA, ARF, Chemo, Hep., AIDS, mental health diagnosis, sleep apnea, morbid obesity)? @ -previous tia Was patient admitted / discharged? Hospital course, mention meds given and route, prescriptions, significant lab abnormalities, going to OR and other pertinent info. @ -Upon arrival patient was placed into hallway 10. Thorough history and physical exam was performed. Patient does have possible left-sided lower facial droop. She has some paresthesias in her left lower extremity. symptoms greater than 24 hours and therefore code stroke was not activated. IV is established. Laboratory studies are conducted. Patient is sent for CT and CT angiography. Demonstrates no acute CVA. Results are discussed with the patient. Did recommend admission for neurology consultation. Patient refused. States she preferred to follow-up with her doctor on Wednesday. She is aware of the risks of leaving. Recommend that she return for any new or worsening symptoms or be agreeable to the admission. Patient understood and was disch arged with a guarded prognosis Undiagnosed new problem with uncertain prognosis? @ -yes Drug Therapy requiring intensive monitoring for toxicity (Heparin, Nitro, Insulin, Cardizem)? @ -No Were any procedures done? @ -No Diagnosis/symptom? @ -accelerated htn, left leg paresthesias, left facial paresthesias Acute, or Chronic, or Acute on Chronic? @ -acute Uncomplicated (without systemic symptoms) or Complicated (systemic symptoms)? @ -complicated Side effects of treatment? @ -No Exacerbation, Progression, or Severe Exacerbation? @ -No Poses a threat to life or bodily function? How? (Chest pain, USA, CA, pneumonia, PE, COPD, DKA, ARF, appy, cholecystitis, CVA, Diverticulitis, Homicidal, Suicidal, threat to staff... and all critical care pts) @ -No - Lab Data Result diagrams: 10/29/23 16:05 10/29/23 16:05 Lab Results 10/29/23 10/29/23 10/29/23 Range/Units 16:05 16:05 16:05 WBC 7.6 (3.8-10.6) k/uL RBC 4.23 (3.80-5.40) m/uL Hgb 12.8 (11.4-16.0) gm/dL Hct 38.0 (34.0-46.0) % MCV 89.9 (80.0-100.0) fL MCH 30.3 (25.0-35.0) pg MCHC 33.8 (31.0-37.0) g/dL RDW 13.5 (11.5-15.5) % Plt Count 197 (150-450) k/uL MPV 9.0 Neutrophils % 61 % Lymphocytes % 28 % Monocytes % 6 % Eosinophils % 2 % Basophils % 1 % Neutrophils # 4.6 (1.3-7.7) k/uL Lymphocytes # 2.1 (1.0-4.8) k/uL Monocytes # 0.5 (0-1.0) k/uL Eosinophils # 0.1 (0-0.7) k/uL Basophils # 0.1 (0-0.2) k/uL PT 11.2 (10.0-12.5) sec INR 1.0 (<1.2) APTT 25.3 (22.0-30.0) sec Sodium 139 (137-145) mmol/L Potassium 4.0 (3.5-5.1) mmol/L Chloride 103 (98-107) mmol/L Carbon Dioxide 25 (22-30) mmol/L Anion Gap 11 mmol/L BUN 16 (7-17) mg/dL Creatinine 0.55 (0.52-1.04) mg/dL Est GFR (CKD-EPI)AfAm >90 (>60 ml/min/1.73 sqM) Est GFR (CKD-EPI)NonAf >90 (>60 ml/min/1.73 sqM) Glucose 81 (74-99) mg/dL Calcium 9.6 (8.4-10.2) mg/dL Total Bilirubin 0.5 (0.2-1.3) mg/dL AST 33 (14-36) U/L ALT 28 (4-34) U/L Alkaline Phosphatase 112 (38-126) U/L Troponin I (0.000-0.034) ng/mL Total Protein 7.6 (6.3-8.2) g/dL Albumin 4.6 (3.5-5.0) g/dL 10/29/23 Range/Units 16:05 WBC (3.8-10.6) k/uL RBC (3.80-5.40) m/uL Hgb (11.4-16.0) gm/dL Hct (34.0-46.0) % MCV (80.0-100.0) fL MCH (25.0-35.0) pg MCHC (31.0-37.0) g/dL RDW (11.5-15.5) % Plt Count (150-450) k/uL MPV Neutrophils % % Lymphocytes % % Monocytes % % Eosinophils % % Basophils % % Neutrophils # (1.3-7.7) k/uL Lymphocytes # (1.0-4.8) k/uL Monocytes # (0-1.0) k/uL Eosinophils # (0-0.7) k/uL Basophils # (0-0.2) k/uL PT (10.0-12.5) sec INR (<1.2) APTT (22.0-30.0) sec Sodium (137-145) mmol/L Potassium (3.5-5.1) mmol/L Chloride (98-107) mmol/L Carbon Dioxide (22-30) mmol/L Anion Gap mmol/L BUN (7-17) mg/dL Creatinine (0.52-1.04) mg/dL Est GFR (CKD-EPI)AfAm (>60 ml/min/1.73 sqM) Est GFR (CKD-EPI)NonAf (>60 ml/min/1.73 sqM) Glucose (74-99) mg/dL Calcium (8.4-10.2) mg/dL Total Bilirubin (0.2-1.3) mg/dL AST (14-36) U/L ALT (4-34) U/L Alkaline Phosphatase (38-126) U/L Troponin I <0.012 (0.000-0.034) ng/mL Total Protein (6.3-8.2) g/dL Albumin (3.5-5.0) g/dL Disposition Clinical Impression: Facial droop, Paresthesia, Hypertension Disposition: HOME SELF-CARE Condition: Undetermined Instructions (If sedation given, give patient instructions): Paresthesia (ED), Hypertension (ED) Additional Instructions: I recommended hospital admission. Please follow-up with your primary care doctor to obtain an MRI. You will benefit from seeing a neurologist. Please return should your symptoms worsen Is patient prescribed a controlled substance at d/c from ED?: No Referrals: Herman Castellanos MD [Primary Care Provider] - 1-2 days Time of Disposition: 17:57
[2023-10-29 16:19] LABS: Basophils # (A) 0.1 k/uL (0-0.2); Basophils % (A) 1 %; Eosinophils # (A) 0.1 k/uL (0-0.7); Eosinophils % (A) 2 %; HGB 12.8 gm/dL (11.4-16.0); Lymphocytes # (A) 2.1 k/uL (1.0-4.8); Lymphocytes % (A) 28 %; MCH 30.3 pg (25.0-35.0); MCHC 33.8 g/dL (31.0-37.0); MCV 89.9 fL (80.0-100.0); Monocytes # (A) 0.5 k/uL (0-1.0); Monocytes % (A) 6 %; Neutrophils # (A) 4.6 k/uL (1.3-7.7); Neutrophils % (A) 61 %; Platelet Count 197 k/uL (150-450); RBC 4.23 m/uL (3.80-5.40); RDW 13.5 % (11.5-15.5); WBC 7.6 k/uL (3.8-10.6)
[2023-10-29 16:36] LABS: Partial Thromboplastin Time 25.3 sec (22.0-30.0); Prothrombin Time 11.2 sec (10.0-12.5)
[2023-10-29 16:40] LABS: ALT 28 U/L (4-34); AST 33 U/L (14-36); African American GFR (CKD) >90 (>60 ml/min/1.73 sqM); Albumin 4.6 g/dL (3.5-5.0); Alkaline Phosphatase 112 U/L (38-126); Anion Gap 11 mmol/L; Blood Urea Nitrogen 16 mg/dL (7-17); Calcium 9.6 mg/dL (8.4-10.2); Carbon Dioxide 25 mmol/L (22-30); Chloride 103 mmol/L (98-107); Glucose 81 mg/dL (74-99); Non-African American GFR(CKD) >90 (>60 ml/min/1.73 sqM); Sodium 139 mmol/L (137-145); Total Bilirubin 0.5 mg/dL (0.2-1.3); Total Protein 7.6 g/dL (6.3-8.2)
--- NOTE | 2023-10-29 16:54 | CT ---
EXAMINATION TYPE: CT angio head neck, CT brain wo con DATE OF EXAM: 10/29/2023 COMPARISON: HISTORY: neuro deficit. Headache x 1 week, suspected stroke. TECHNIQUE: CT of the brain without contrast. Coronal and sagittal reconstructions performed. Subsequent CT of the head and neck with with IV Contrast, patient injected with 65 cc mL of Isovue 37 0. Coronal/sagittal reconstructions performed. 3-D reconstructions generated on a dedicated [employer] workstation. CT DLP: 1610.5 mGycm Automated exposure control for dose reduction was used. FINDINGS: Brain: Mild age-related cerebral cortical volume loss. No evidence for acute intracranial hemorrhage, acute ischemic change, mass, mass effect, midline shif t, or extra-axial fluid collection. No hydrocephalus. No effacement of cerebral sulci and subarachnoi d cisterns. Almonte-white matter differentiation is maintained. Faint basal ganglia and calcifications on both sides. Leftward nasal septal deviation. Trace mucosal thickening right maxillary sinus. Ethmoid air cells we ll pneumatized. Orbits and globes are intact. CTA HEAD: Venous sinuses are patent. The remainder of the anterior circulation. There is some venous contamination causing some difficulty in interpretation. The bilateral vertebral arteries and basilar artery are patent as is the remainder of the posterior c irculation. The left vertebral artery slightly more dominant. The right posterior communicating artery is slightly larger than the left. No aneurysmal changes identified. CTA NECK: Ectatic upper descending thoracic aorta up to 3.4 cm. There is bovine configuration to the aortic arc h with additional direct takeoff of the left vertebral artery directly from the aortic arch. Left vertebral artery is dominant but otherwise, both vessels are patent throughout their course. The right common and right internal carotid arteries are patent by NASCET criteria. No significant na rrowing. The left common and left internal carotid arteries are widely patent by NASCET criteria. IMPRESSION: 1. CT HEAD: No acute intracranial abnormality seen. 2. CTA head: No large vessel intracranial arterial occlusion, significant stenosis, or aneurysmal hailee nge is seen. 3. CTA neck: Some anatomic variation with bovine configuration and aberrant takeoff of the left verte bral artery directly from the aortic arch. The left vertebral artery slightly more dominant. Otherwis e, widely patent carotid and vertebral arteries of the neck.
--- NOTE | 2023-10-29 16:57 | XR ---
EXAMINATION TYPE: XR chest 2V DATE OF EXAM: 10/29/2023 COMPARISON: 04/06/2023 HISTORY: 63-year-old female confusion, altered mental status TECHNIQUE: PA and lateral views FINDINGS: Heart upper limits of normal in size. Aorta and pulmonary vasculature within normal limits. Mild hype rinflation and mild interstitial prominence is unchanged. No consolidation or pleural effusion. IMPRESSION: COPD. Borderline heart size. Otherwise, no definite acute process.
[2023-10-29 17:43] VITALS: BP 167/86; PULSE 72; RESP 21
[2023-10-29] MEDS ORDERED: ACETAMINOPHEN TAB 325 MG TAB PO STA (17:45)
== END 2023-10-29 18:00 | disposition home or self-care (01) ==
LOC: EC 14:30
DX: R29.810 Facial weakness (principal); R20.2 Paresthesia of skin; I10 Essential (primary) hypertension; K21.9 Gastro-esophageal reflux disease without esophagitis; E07.9 Disorder of thyroid, unspecified; Z79.890 Hormone replacement therapy; Z79.899 Other long term (current) drug therapy
CPT/HCPCS: 99285 ×2; 36415; 93005; 80053; 84484; 85025; 85610; 85730; 71046; 70496; 70450; 70498; Q9967

== ENCOUNTER 2023-12-25 18:49 | Emergency (ER) | payer MEDICARE, OTHER ==
[2023-12-25 19:03] VITALS: TEMP 97.5
[2023-12-25] MEDS ORDERED: SODIUM CHLORIDE 0.9% 1,000 ML IV STA (19:43)
[2023-12-25] MEDS ORDERED: ONDANSETRON 4 MG/2 ML VIAL IVP STA (19:43)
[2023-12-25] MEDS ORDERED: PANTOPRAZOLE 40 MG/10 ML VIAL IVP STA (19:43)
[2023-12-25] MEDS ORDERED: MORPHINE SULFATE 4 MG/ML SYRINGE IVP STA (19:44)
--- NOTE | 2023-12-25 20:40 | ED ---
General Adult HPI - General Source: patient, RN notes reviewed, old records reviewed Mode of arrival: ambulatory Limitations: no limitations <Piyush Hyde - Last Filed: 12/25/23 20:41> <Carmelo Johansen - Last Filed: 12/26/23 00:29> - General Chief complaint: Nausea/Vomiting/Diarrhea Stated complaint: abd pain Time Seen by Provider: 12/25/23 19:38 - History of Present Illness Initial comments: Patient is a 63-year-old female who presents emergency department with right lower quadrant abdominal pain. States it started suddenly earlier today and has been present all day. Denies any diarrhea or constipation. Last bowel movement was this morning. No significant emesis but does endorse nausea. Denies chest pain or shortness of breath. Denies any urinary complaints. He has no other acute complaints at this time. Denies any history of abdominal surgeries. Presents for further evaluation. States that radiates sometimes around the right flank but is primarily isolated to the right lower quadrant. (Piyush Hyde) - Related Data Home Medications Medication Instructions Recorded Confirmed Levothyroxine Sodium [Synthroid] 75 mcg PO DAILY 09/16/15 12/25/23 Escitalopram [Lexapro] 5 mg PO DAILY 04/06/23 12/25/23 Ferrous Sulfate [Iron (65 MG 325 mg PO Q48H 04/06/23 12/25/23 Elemental)] Omeprazole [PriLOSEC] 40 mg PO DAILY 10/29/23 12/25/23 Rosuvastatin [Crestor] 10 mg PO DAILY 12/25/23 12/25/23 lisinopriL [Zestril] 5 mg PO DAILY 12/25/23 12/25/23 Previous Rx's Medication Instructions Recorded Aspirin 81 mg PO DAILY #30 tab 04/07/23 HYDROcodone/APAP 5-325MG [[place] 1 tab PO Q4HR PRN 3 Days #18 tab 12/26/23 5-325] Ondansetron Odt [Zofran ODT] 4 mg PO Q8HR PRN #10 tab 12/26/23 Tamsulosin [Flomax] 0.4 mg PO DAILY #14 cap 12/26/23 Allergies Allergy/AdvReac Type Severity Reaction Status Date / Time No Known Allergies Allergy Verified 12/25/23 19:02 Review of Systems ROS Other: All systems not noted in ROS Statement are negative. <Piyush Hyde - Last Filed: 12/25/23 20:41> ROS Other: All systems not noted in ROS Statement are negative. <Carmelo Johansen - Last Filed: 12/26/23 00:29> ROS Statement: Those systems with pertinent positive or pertinent negative responses have been documented in the HPI. Review of Systems: CONST: Denies fever EYES: Denies blurry vision ENT: Denies nasal congestion C/V: Denies Chest pain RESP: Denies shortness of breath GI: Endorses abdominal pain : Denies dysuria SKIN: Denies rash. MSK: Denies joint pain. NEURO: Denies headache (Piyush Hyde) Past Medical History Past Medical History: GERD/Reflux, Thyroid Disorder Additional Past Medical History / Comment(s): Hx. H Pylori. Recent vomiting and diarhrea and bleeding from rectum. History of Any Multi-Drug Resistant Organisms: None Reported Past Surgical History: Orthopedic Surgery, Tubal Ligation Additional Past Surgical History / Comment(s): FINGER SX, pilonidal cyst removed. Past Anesthesia/Blood Transfusion Reactions: Postoperative Nausea & Vomiting (PONV) Past Psychological History: No Psychological Hx Reported Smoking Status: Never smoker Past Alcohol Use History: Occasional Past Drug Use History: None Reported - Past Family History Mother Family Medical History: No Reported History <Piyush Hyde - Last Filed: 12/25/23 20:41> General Exam Limitations: no limitations <Piyush Hyde - Last Filed: 12/25/23 20:41> - General Exam Comments Initial Comments: General: Appears in mild to moderate distress secondary to abdominal pain. HEAD: Normal with no signs of head trauma. EYES: EOMI ENT: Hearing grossly intact, normal oropharynx. RESPIRATORY: Clear breath sounds bilaterally. No wheezes, rales, or rhonchi. C/V: Regular rate and rhythm. S1 and S2 auscultated, no edema, peripheral pulses 2+ and intact throughout ABD: Abdomen is soft, nondistended. Tender palpation of the right lower quadrant. No guarding. No rebound tenderness. No peritoneal signs. EXT: Normal range of motion, no obvious deformity SKIN: No rashes or lesions observed on exposed skin. NEURO: Alert and oriented x 4 (Piyush Hyde) Course Vital Signs 12/25/23 12/25/2324 18:59 20:17 21:08 Temperature 97.5 F L Pulse Rate 64 61 61 Respiratory 16 18 17 Rate Blood Pressure 162/56 163/75 147/71 O2 Sat by Pulse 100 98 97 Oximetry 12/26/23 00:20 Temperature Pulse Rate 60 Respiratory 18 Rate Blood Pressure 124/63 O2 Sat by Pulse 97 Oximetry Medical Decision Making - EKG Data -: EKG Interpreted by Me <Piyush Hyde - Last Filed: 12/25/23 20:41> - Lab Data Result diagrams: 12/25/23 19:48 12/25/23 19:48 <Carmelo Johansen - Last Filed: 12/26/23 00:29> - Medical Decision Making Was pt. sent in by a medical professional or institution (, PA, SENIOR DATABASE PROGRAMMER, urgent care, hospital, or custodial...) When possible be specific @ -No Did you speak to anyone other than the patient for history (EMS, parent, family, police, friend...)? What history was obtained from this source @ -No Did you review nursing and triage notes (agree or disagree)? Why? @ -I reviewed and agree with nursing and triage notes Were old charts reviewed (outside hosp., previous admission, EMS record, old EKG, old radiological studies, urgent care reports/EKG's, custodial records)? Report findings @ -Old charts reviewed Differential Diagnosis (chest pain, altered mental status, abdominal pain women, abdominal pain men, vaginal bleeding, weakness, fever, dyspnea, syncope, headache, dizziness, GI bleed, back pain, seizure, CVA, palpatations, mental health, musculoskeletal)? @ -Differential Abdominal Pain Women: Appendicitis, Cholecystitis, diverticulosis, ischemic bowel, pancreatitis, hepatitis, UTI, gastroenteritis, AAA, incarcerated hernia, bowel obstruction, constipation, inflammatory bowel, hepatitis, peptic ulcer disease, splenic i nfarction, perforated viscus, vulvitis, ovarian torsion, PID, kidney stone, placenta abruption, this is not meant to be an all-inclusive list EKG interpreted by me (3pts min.). @ -As above X-rays interpreted by me (1pt min.). @ -None done CT interpreted by me (1pt min.). @ -Pending U/S interpreted by me (1pt. min.). @ -None done What testing was considered but not performed or refused? (CT, X-rays, U/S, labs)? Why? @ -None What meds were considered but not given or refused? Why? @ -None Did you discuss the management of the patient with other professionals (professionals i.e. , PA, SENIOR DATABASE PROGRAMMER, lab, RT, psych nurse, social science manager, line department supervisor, teacher, campus police officer, manager case)? Give summary @ -No Was smoking cessation discussed for >3mins.? @ -No Was critical care preformed (if so, how long)? @ -No Were there social determinants of health that impacted care today? How? (Homelessness, low income, unemployed, alcoholism, drug addiction, transportation, low edu. Level, literacy, decrease access to med. care, fci, rehab)? @ -No Was there de-escalation of care discussed even if they declined (Discuss DNR or withdrawal of care, Hospice)? DNR status @ -No What co-morbidities impacted this encounter? (DM, HTN, Smoking, COPD, CAD, Cancer, CVA, ARF, Chemo, Hep., AIDS, mental health diagnosis, sleep apnea, morbid obesity)? @ -None Was patient admitted / discharged? Hospital course, mention meds given and route, prescriptions, significant lab abnormalities, going to OR and other pertinent info. @ -Patient presents with right lower quadrant abdominal pain. We will obtain abdominal workup. She will be symptomatically treated with IV fluids, morphine, Zofran, Protonix. Patient in agreement this plan. Screening EKG will be obtained as well. Vital signs are within acceptable limits. EKG showed no signs of acute ischemia. Workup is still pending at this time. Patient will be signed out to oncoming ER physician Dr. Shea pending results of workup. (Piyush Hyde) Was patient admitted / discharged? Hospital course, mention meds given and route, prescriptions, significant lab abnormalities, going to OR and other pertinent info. @ -[I received this patient in signout, pending the results of some of the studies. When the CT scan had resulted a reviewed studies with the patient. She is feeling better and would like to go home. The CT does show kidney stone that should pass given its size and distal location. We discussed appropriate further care and follow-up as well as return parameters. Undiagnosed new problem with uncertain prognosis? @ -[No] Drug Therapy requiring intensive monitoring for toxicity (Heparin, Nitro, In sulin, Cardizem)? @ -[No] Were any procedures done? @ -[No] Diagnosis/symptom? @ -Flank pain Kidney stone Acute, or Chronic, or Acute on Chronic? @ -[Acute Uncomplicated (without systemic symptoms) or Complicated (systemic symptoms)? @ -[Uncomplicated Side effects of treatment? @ -[No] Exacerbation, Progression, or Severe Exacerbation? @ -[No] Poses a threat to life or bodily function? How? (Chest pain, [place], [place], pneumonia, PE, COPD, DKA, ARF, appy, cholecystitis, CVA, Diverticulitis, Homicidal, Suicidal, threat to staff... and all critical care pts) @ -[No] (Carmelo Johansen) - Lab Data Lab Results 12/25/23 12/25/23 12/25/23 Range/Units 19:48 19:48 19:48 WBC 11.5 H (3.8-10.6) k/uL RBC 4.27 (3.80-5.40) m/uL Hgb 12.7 (11.4-16.0) gm/dL Hct 38.3 (34.0-46.0) % MCV 89.7 (80.0-100.0) fL MCH 29.7 (25.0-35.0) pg MCHC 33.1 (31.0-37.0) g/dL RDW 13.0 (11.5-15.5) % Plt Count 212 (150-450) k/uL MPV 9.6 Neutrophils % 83 % Lymphocytes % 10 % Monocytes % 6 % Eosinophils % 1 % Basophils % 0 % Neutrophils # 9.5 H (1.3-7.7) k/uL Lymphocytes # 1.1 (1.0-4.8) k/uL Monocytes # 0.7 (0-1.0) k/uL Eosinophils # 0.1 (0-0.7) k/uL Basophils # 0.0 (0-0.2) k/uL PT 11.3 (10.0-12.5) sec INR 1.0 (<1.2) APTT 20.5 L (22.0-30.0) sec Sodium 137 (137-145) mmol/L Potassium (3.5-5.1) mmol/L Chloride 108 H (98-107) mmol/L Carbon Dioxide 18 L (22-30) mmol/L Anion Gap 11 mmol/L BUN 22 H (7-17) mg/dL Creatinine 1.04 (0.52-1.04) mg/dL Est GFR (CKD-EPI)AfAm 67 (>60 ml/min/1.73 sqM) Est GFR (CKD-EPI)NonAf 58 (>60 ml/min/1.73 sqM) Glucose 122 H (74-99) mg/dL Plasma Lactic Acid Baljit (0.7-2.0) mmol/L Calcium 9.4 (8.4-10.2) mg/dL Total Bilirubin 2.8 H (0.2-1.3) mg/dL AST 109 H (14-36) U/L ALT 39 H (4-34) U/L Alkaline Phosphatase 70 (38-126) U/L Total Protein 9.5 H (6.3-8.2) g/dL Albumin 6.0 H (3.5-5.0) g/dL Amylase 104 (30-110) U/L Lipase 97 (23-300) U/L Urine Color Urine Appearance (Clear) Urine pH (5.0-8.0) Ur Specific Remer (1.001-1.035) Urine Protein (Negative) Urine Glucose (UA) (Negative) Urine Ketones (Negative) Urine Blood (Negative) Urine Nitrite (Negative) Urine Bilirubin (Negative) Urine Urobilinogen (<2.0) mg/dL Ur Leukocyte Esterase (Negative) Urine RBC (0-5) /hpf Urine WBC (0-5) /hpf Ur Squamous Epith Cells (0-4) /hpf Amorphous Sediment (None) /hpf Urine Bacteria (None) /hpf Hyaline Casts (0-2) /lpf Urine Mucus (None) /hpf Urine Yeast (Budding) (None) /hpf 12/25/23 12/25/23 Range/Units 19:48 19:48 WBC (3.8-10.6) k/uL RBC (3.80-5.40) m/uL Hgb (11.4-16.0) gm/dL Hct (34.0-46.0) % MCV (80.0-100.0) fL MCH (25.0-35.0) pg MCHC (31.0-37.0) g/dL RDW (11.5-15.5) % Plt Count (150-450) k/uL MPV Neutrophils % % Lymphocytes % % Monocytes % % Eosinophils % % Basophils % % Neutrophils # (1.3-7.7) k/uL Lymphocytes # (1.0-4.8) k/uL Monocytes # (0-1.0) k/uL Eosinophils # (0-0.7) k/uL Basophils # (0-0.2) k/uL PT (10.0-12.5) sec INR (<1.2) APTT (22.0-30.0) sec Sodium (137-145) mmol/L Potassium (3.5-5.1) mmol/L Chloride (98-107) mmol/L Carbon Dioxide (22-30) mmol/L Anion Gap mmol/L BUN (7-17) mg/dL Creatinine (0.52-1.04) mg/dL Est GFR (CKD-EPI)AfAm (>60 ml/min/1.73 sqM) Est GFR (CKD-EPI)NonAf (>60 ml/min/1.73 sqM) Glucose (74-99) mg/dL Plasma Lactic Acid Baljit 1.8 (0.7-2.0) mmol/L Calcium (8.4-10.2) mg/dL Total Bilirubin (0.2-1.3) mg/dL AST (14-36) U/L ALT (4-34) U/L Alkaline Phosphatase (38-126) U/L Total Protein (6.3-8.2) g/dL Albumin (3.5-5.0) g/dL Amylase (30-110) U/L Lipase (23-300) U/L Urine Color Light Red Urine Appearance Cloudy H (Clear) Urine pH 7.5 (5.0-8.0) Ur Specific Remer 1.031 (1.001-1.035) Urine Protein 1+ H (Negative) Urine Glucose (UA) Negative (Negative) Urine Ketones 2+ H (Negative) Urine Blood Large H (Negative) Urine Nitrite Negative (Negative) Urine Bilirubin Negative (Negative) Urine Urobilinogen <2.0 (<2.0) mg/dL Ur Leukocyte Esterase Small H (Negative) Urine RBC >182 H (0-5) /hpf Urine WBC 4 (0-5) /hpf Ur Squamous Epith Cells 9 H (0-4) /hpf Amorphous Sediment Rare H (None) /hpf Urine Bacteria Rare H (None) /hpf Hyaline Casts 8 H (0-2) /lpf Urine Mucus Many H (None) /hpf Urine Yeast (Budding) Rare H (None) /hpf - EKG Data EKG Comments: 12-lead Electrocardiogram Interpretation Note EKG was reviewed and interpreted by myself. 12-lead ECG performed at 2002 is interpreted by me as revealing normal sinus rhythm at a rate of 63 beats per minute. [place] is normal. MS interval is 190 ms, QRS duration is 89 ms, QTc is 425 ms.. There were no ST or T wave abnormalities to suggest myocardial isc hemia or injury. R wave progression across the precordium was satisfactory. By my interpretation this EKG is non-diagnostic for acute ischemia. (Piyush Hyde) Disposition <Piyush Hyde - Last Filed: 12/25/23 20:41> Is patient prescribed a controlled substance at d/c from ED?: Yes <Carmelo Johansen - Last Filed: 12/26/23 00:29> Clinical Impression: Kidney stone Disposition: HOME SELF-CARE Condition: Good Instructions (If sedation given, give patient instructions): Kidney Stones (ED) Prescriptions: Tamsulosin [Flomax] 0.4 mg PO DAILY #14 cap HYDROcodone/APAP 5-325MG [[place] 5-325] 1 tab PO Q4HR PRN 3 Days #18 tab PRN Reason: Pain Ondansetron Odt [Zofran ODT] 4 mg PO Q8HR PRN #10 tab PRN Reason: Nausea Referrals: Herman Castellanos MD [Primary Care Provider] - 1-2 days Lan Reich MD [STAFF PHYSICIAN] - 1-2 days
[2023-12-25 20:51] LABS: Basophils % (A) 0 %; Eosinophils # (A) 0.1 k/uL (0-0.7); Eosinophils % (A) 1 %; HCT 38.3 % (34.0-46.0); HGB 12.7 gm/dL (11.4-16.0); Lymphocytes # (A) 1.1 k/uL (1.0-4.8); Lymphocytes % (A) 10 %; MCH 29.7 pg (25.0-35.0); MCHC 33.1 g/dL (31.0-37.0); MCV 89.7 fL (80.0-100.0); Mean Platelet Volume 9.6; Monocytes # (A) 0.7 k/uL (0-1.0); Monocytes % (A) 6 %; Neutrophils # (A) 9.5 k/uL (1.3-7.7); Neutrophils % (A) 83 %; Platelet Count 212 k/uL (150-450); RBC 4.27 m/uL (3.80-5.40); WBC 11.5 k/uL (3.8-10.6)
[2023-12-25 20:54] LABS: Amorphous Sediment,Urine Rare /hpf; Appearance,Urine Cloudy (Clear); Bacteria,Urine Rare /hpf; Bilirubin,Urine Negative (Negative); Blood,Urine Large (Negative); Budding Yeast,Urine Rare /hpf; Color,Urine Light Red; Glucose,Urine (UA) Negative (Negative); Hyaline Casts,Urine 8 /lpf (0-2); Ketones,Urine 2+ (Negative); Leukocyte Esterase,Urine Small (Negative); Mucus,Urine Many /hpf; Nitrite,Urine Negative (Negative); PH, Urine 7.5 (5.0-8.0); Protein,Urine 1+ (Negative); RBC,Urine >182 /hpf (0-5); Specific Gravity,Urine 1.031 (1.001-1.035); Squamous Epithelial Cell,Urine 9 /hpf (0-4); Urobilinogen,Urine <2.0 mg/dL (<2.0); WBC,Urine 4 /hpf (0-5)
[2023-12-25] MEDS ORDERED: METOCLOPRAMIDE 5 MG/ML 2 ML VIAL IVP STA (20:56)
[2023-12-25 21:03] LABS: ALT 39 U/L (4-34); AST 109 U/L (14-36); African American GFR (CKD) 67 (>60 ml/min/1.73 sqM); Alkaline Phosphatase 70 U/L (38-126); Amylase 104 U/L (30-110); Anion Gap 11 mmol/L; Blood Urea Nitrogen 22 mg/dL (7-17); Calcium 9.4 mg/dL (8.4-10.2); Carbon Dioxide 18 mmol/L (22-30); Chloride 108 mmol/L (98-107); Glucose 122 mg/dL (74-99); Lipase 97 U/L (23-300); Non-African American GFR(CKD) 58 (>60 ml/min/1.73 sqM); Sodium 137 mmol/L (137-145); Total Bilirubin 2.8 mg/dL (0.2-1.3); Total Protein 9.5 g/dL (6.3-8.2)
[2023-12-25 21:45] LABS: Prothrombin Time 11.3 sec (10.0-12.5)
[2023-12-25 21:46] LABS: Partial Thromboplastin Time 20.5 sec (22.0-30.0)
--- NOTE | 2023-12-25 23:03 | CT ---
EXAMINATION TYPE: CT abdomen pelvis w con CT DLP: 1080.3 mGycm, Automated exposure control for dose reduction was used. DATE OF EXAM: 12/25/2023 9:37 PM COMPARISON: CT abdomen pelvis 11/01/2015 CLINICAL INDICATION:Female, 63 years old with history of abdominal pain, RLQ; RLQ abdominal pain sinc e yesterday TECHNIQUE: Axial CT of the abdomen and pelvis. Sagittal and coronal reformats were created on a [employer] workstation. Contrast used:100 ml mL of Isovue 300 with IV Contrast, (none if empty) Oral contrast used: without Oral Contrast (none if empty) FINDINGS: LOWER CHEST: Mild dependent atelectasis at the lung bases. No pleural effusion. Heart appears mildly enlarged. No pericardial effusion. Small calcified nodule in the right pericardial fat. Visualized pu lmonary trunk appears mildly enlarged measuring about 3.2 cm, this can be seen with pulmonary hyperte nsion. Minor calcification at the aortic valve and proximal aorta. Visualized thoracic aorta is frederick l in size. Moderate size sliding hiatal hernia, has enlarged from prior. ABDOMEN LIVER: Small focus of low-attenuation in the anterior liver along the fissure for ligamentum teres, m ost consistent with focal fat. Otherwise unremarkable liver. GALLBLADDER AND BILE DUCTS: Unremarkable gallbladder. No biliary ductal dilatation. PANCREAS: Unremarkable. SPLEEN: Unremarkable. ADRENAL GLANDS: Unremarkable. KIDNEYS AND URETERS: Kidneys enhance roughly symmetrically but there may be slightly delayed nephrogr am on the right. Moderate to severe right-sided hydroureteronephrosis, appears especially prominent p roximal to the UPJ but the ureter appears dilated down into the pelvis leading up to an irregularly s haped 6 x 4 mm calculus which is probably lodged at the ureterovesical junction. Multiple left-sided parapelvic cysts without hydronephrosis seen. PELVIS BLADDER: Unremarkable REPRODUCTIVE: Grossly unremarkable uterus. Small soft tissue densities in the adnexal regions could r elate to the ovaries. No definite pelvic masses seen. ABDOMEN & PELVIS STOMACH AND BOWEL: Stomach and small bowel are nondistended, more distal bowel loops appear normal ca liber without evidence of obstruction. Appendix appears within normal limits. No pericecal inflammato ry changes are suggested. Colonic diverticula are present which do not appear inflamed. PERITONEUM/RETROPERITONEUM: No evidence of pneumoperitoneum or free fluid. VASCULATURE: Mild aortic atherosclerotic calcification. No AAA. LYMPH NODES: No gross evidence for lymphadenopathy. SOFT TISSUE/ABDOMINAL WALL: Tiny fat-containing umbilical hernia, small fat-containing bilateral ingu inal regional hernias. MUSCULOSKELETAL: No acute osseous abnormalities. Mild/moderate disc degeneration changes are present throughout the thoracolumbar spine. IMPRESSION: 1. Moderate to severe right-sided hydroureteronephrosis, appears likely secondary to a 6 x 4 mm calc ulus at the right ureterovesical junction. An underlying mild UPJ stenosis may also be present. 2. No evidence of appendicitis, bowel obstruction, or free air. 3. Colonic diverticula are present which do not appear inflamed. 4. Mild cardiomegaly. Enlarged pulmonary trunk, can be seen with pulmonary hypertension. 5. Moderate size sliding hiatal hernia, enlarged compared to prior in 2015.
[2023-12-26] MEDS ORDERED: TAMSULOSIN 0.4 MG CAP.ER.24H PO STA (00:02)
[2023-12-26] MEDS ORDERED: TAMSULOSIN 0.4 MG CAP.ER.24H PO ONE (00:15)
[2023-12-26] MEDS ORDERED: MORPHINE SULFATE 4 MG/ML SYRINGE IV STA (00:29)
[2023-12-26 00:52] VITALS: BP 124/63; PULSE 60; RESP 18
== END 2023-12-26 00:39 | disposition home or self-care (01) ==
LOC: EC 18:49
DX: N13.2 Hydronephrosis with renal and ureteral calculous obstruction (principal); E07.9 Disorder of thyroid, unspecified; K21.9 Gastro-esophageal reflux disease without esophagitis; Z79.890 Hormone replacement therapy; Z79.899 Other long term (current) drug therapy
CPT/HCPCS: 36415; 93005; 80053; 82150; 83605; 83690; 85025; 85610; 85730; 81001; 74177; 99285; 96374; 96375 ×3; 96376; 96361 ×4; J2270; J2765; J2405; C9113; Q9967

== ENCOUNTER → 2024-08-17 | Outpatient (CLI) | payer MEDICARE ==
--- NOTE | 2024-08-20 14:00 | MM ---
Reason for Exam: Screening (asymptomatic). Last mammogram was performed 1 year(s) and 5 month(s) ago. Patient History: Menarche at age 14. Patient has no children. Postmenopausal. Risk Values: Sharon 5 year model risk: 1.6%. NCI Lifetime model risk: 7.9%. Prior Study Comparison: 06/15/2019 Bilateral Screening Mammogram, [facility]. 10/01/2021 Bilateral Screening Mammogram, [facility]. 03/11/2023 Bilateral MG 3D screening mammo w/cad, [facility]. Tissue Density: The breasts are heterogeneously dense, which may obscure small masses. Findings: Analyzed By CAD. The pattern is symmetrical. Scattered punctate calcifications are present. Benign vascular calcifications right breast. Some benign calcifications within the left breast. No suspicious groups of microcalcifications, spiculated or lobular masses, architectural distortion or other secondary signs of malignancy are mammographically apparent. Overall Assessment: Benign, BI-RAD 2 Management: Screening Mammogram of both breasts in 1 year. A negative mammogram report should not preclude additional follow up of suspicious palpable abnormalities. Patient should continue monthly self breast exam. A clinical breast exam by your physician is recommended on an annual basis and results should be correlated with mammographic findings. Note on Sharon scores and lifetime risk: 1. A Sharon score greater than 3% is considered moderate risk. If this is the case, consider specialist referral to assess eligibility for a risk reducing agent. 2. If overall lifetime risk for the development of breast cancer is 20% or higher, the patient may qualify for future screening with alternating mammogram and breast MRI. [facility], , 08/20/2024 1:57 PM. Electronically signed and approved by: Silvio Worthy D.O. Radiologis
== END | disposition home or self-care (01) ==
LOC: RADMAMWWP 11:24
PROVIDERS: ATTEND Family Medicine
CPT/HCPCS: 77063; 77067

== ENCOUNTER → 2024-11-14 | Outpatient (CLI) | payer MEDICARE ==
--- NOTE | 2024-12-07 12:16 | EM ---
EVENT MONITOR The patient was monitored between November 14, 2024 and November 27, 2024. CLINICAL INFORMATION: Baseline rhythm is sinus mechanism. The average rate 70 beats per minute, minimum 49, maximum 120 beats per minute. Ventricular ectopic activity was present in the form of rare single PVCs. Supraventricular ectopic activity was present in the form of rare single PACs. Symptoms of shortness of breath correlated with sinus mechanism. No atrial fibrillation was noted. No pauses were noted. MMODL / IJN: [id number] /
== END | disposition home or self-care (01) ==
LOC: RADECHMAIN 07:12
PROVIDERS: ATTEND Family Medicine
DX: R00.2 Palpitations (principal)
CPT/HCPCS: 93270

== ENCOUNTER 2025-06-02 19:24 | Inpatient (IN) | payer MEDICARE, MEDICAID ==
--- NOTE | 2025-06-02 20:06 | ED ---
General Adult HPI - General Source: police, RN notes reviewed, old records reviewed Mode of arrival: ambulatory Limitations: no limitations <Ottoniel Haywood - Last Filed: 06/02/25 20:15> <Thiago Vazquez - Last Filed: 06/03/25 14:19> - General Chief complaint: Overdose Stated complaint: mental health Time Seen by Provider: 06/02/25 19:36 - History of Present Illness Initial comments: 64-year-old female presenting for mental health evaluation and overdose. Patient admits to taking approximately ten 500 mg Tylenol. This was between 1 hour and 90 minutes prior to arrival. Patient denies physical complaints. She has been petitioned by her family. She denies any other drug ingestion but does admit to alcohol. (Ottoniel Haywood) - Related Data Home Medications Medication Instructions Recorded Confirmed Levothyroxine Sodium [Synthroid] 75 mcg PO DAILY 09/16/15 12/25/23 Escitalopram [Lexapro] 5 mg PO DAILY 04/06/23 12/25/23 Ferrous Sulfate [Iron (65 MG 325 mg PO Q48H 04/06/23 12/25/23 Elemental)] Omeprazole [PriLOSEC] 40 mg PO DAILY 10/29/23 12/25/23 Rosuvastatin [Crestor] 10 mg PO DAILY 12/25/23 12/25/23 lisinopriL [Zestril] 5 mg PO DAILY 12/25/23 12/25/23 Previous Rx's Medication Instructions Recorded Aspirin 81 mg PO DAILY #30 tab 04/07/23 HYDROcodone/APAP 5-325MG [[place] 1 tab PO Q4HR PRN 3 Days #18 tab 12/26/23 5-325] Ondansetron Odt [Zofran ODT] 4 mg PO Q8HR PRN #10 tab 12/26/23 Tamsulosin [Flomax] 0.4 mg PO DAILY #14 cap 12/26/23 Allergies Allergy/AdvReac Type Severity Reaction Status Date / Time No Known Allergies Allergy Verified 06/02/25 19:37 Review of Systems ROS Other: All systems not noted in ROS Statement are negative. <Ottoniel Haywood - Last Filed: 06/02/25 20:15> ROS Other: All systems not noted in ROS Statement are negative. <Thiago Vazquez - Last Filed: 06/03/25 14:19> ROS Statement: Those systems with pertinent positive or pertinent negative responses have been documented in the HPI. Past Medical History Past Medical History: GERD/Reflux, Thyroid Disorder Additional Past Medical History / Comment(s): Hx. H Pylori. Recent vomiting and diarhrea and bleeding from rectum. History of Any Multi-Drug Resistant Organisms: None Reported Past Surgical History: Orthopedic Surgery, Tubal Ligation Additional Past Surgical History / Comment(s): FINGER SX, pilonidal cyst removed. Past Anesthesia/Blood Transfusion Reactions: Postoperative Nausea & Vomiting (PONV) Past Psychological History: No Psychological Hx Reported Smoking Status: Never smoker Past Alcohol Use History: Occasional Past Drug Use History: None Reported - Past Family History Mother Family Medical History: No Reported History <Ottoniel Haywood - Last Filed: 06/02/25 20:15> General Exam Limitations: no limitations General appearance: alert, in no apparent distress Head exam: Present: atraumatic, normocephalic Eye exam: Present: normal appearance, PERRL Neck exam: Present: normal inspection Respiratory exam: Present: normal lung sounds bilaterally. Absent: respiratory distress, wheezes Cardiovascular Exam: Present: regular rate, normal rhythm GI/Abdominal exam: Present: soft. Absent: distended, tenderness, guarding Extremities exam: Present: normal inspection, normal capillary refill Neurological exam: Present: alert, oriented X3, CN II-XII intact. Absent: motor sensory deficit Psychiatric exam: Present: depressed, anxious, suicidal ideation Skin exam: Present: warm, dry, intact. Absent: cyanosis, diaphoretic <Ottoniel Haywood - Last Filed: 06/02/25 20:15> Course <Ottoniel Haywood - Last Filed: 06/02/25 20:15> Vital Signs 06/02/25 06/02/25 06/02/25 19:29 21:30 22:30 Temperature 98.5 F Pulse Rate 79 57 L 57 L Respiratory 18 18 19 Rate Blood Pressure 126/73 103/53 95/64 O2 Sat by Pulse 94 L 95 94 L Oximetry 06/02/25 06/02/25 06/03/25 23:00 23:45 13:37 Temperature Pulse Rate 65 64 70 Respiratory 18 18 20 Rate Blood Pressure 105/66 105/66 157/85 O2 Sat by Pulse 94 L 94 L 96 Oximetry - Reevaluation(s) Reevaluation #1: 06/02/25 20:02 Poison control has been contacted for recommendations (Ottoniel Haywood) Medical Decision Making - Lab Data Result diagrams: 06/02/25 19:57 <Ottoniel Haywood - Last Filed: 06/02/25 20:15> - Lab Data Result diagrams: 06/02/25 19:57 06/02/25 22:41 <Thiago Vazquez - Last Filed: 06/03/25 14:19> - Medical Decision Making Was pt. sent in by a medical professional or institution (, PA, DIRECTOR ELECTRICAL ENGINEERING, urgent care, hospital, or fci...) When possible be specific @ -No Did you speak to anyone other than the patient for history (EMS, parent, family, police, friend...)? What history was obtained from this source @ -No Did you review nursing and triage notes (agree or disagree)? Why? @ -I reviewed and agree with nursing and triage notes Were old charts reviewed (outside hosp., previous admission, EMS record, old EKG, old radiological studies, urgent care reports/EKG's, fci records)? Report findings @ -No old charts were reviewed Differential Mental Health Depression, anxiety, bipolar, psychosis, schizophrenia, borderline personality, situational depression, adjustment disorder, behavioral disorder, brain tumor, malingering, substance abuse, encephalopathy, medication reaction, dementia, hypothyroidism, degenerative neurologic disorder, lupus.... This is not meant to be all-inclusive list EKG interpreted by me (3pts min.). @Sinus rhythm rate of 66, NH interval 182, QRS duration 86, QTc [address] segment elevation. X-rays interpreted by me (1pt min.). @ -None done CT interpreted by me (1pt min.). @ -None done U/S interpreted by me (1pt. min.). @ -None done What testing was considered but not performed or refused? (CT, X-rays, U/S, la bs)? Why? @ -None What meds were considered but not given or refused? Why? @ -None Did you discuss the management of the patient with other professionals (professionals i.e. , PA, DIRECTOR ELECTRICAL ENGINEERING, lab, RT, psych nurse, geriatric social worker, floor layer, teacher, operations officer trust department, shoe parts caser)? Give summary @ -No Was smoking cessation discussed for >3mins.? @ -No Was critical care preformed (if so, how long)? @ -No Were there social determinants of health that impacted care today? How? (Homelessness, low income, unemployed, alcoholism, drug addiction, transportation, low edu. Level, literacy, decrease access to med. care, custodial, rehab)? @ -No Was there de-escalation of care discussed even if they declined (Discuss DNR or withdrawal of care, Hospice)? DNR status @ -No What co-morbidities impacted this encounter? (DM, HTN, Smoking, COPD, CAD, Cancer, CVA, ARF, Chemo, Hep., AIDS, mental health diagnosis, sleep apnea, morbid obesity)? @ -None Was patient admitted / discharged? Hospital course, mention meds given and route, prescriptions, significant lab abnormalities, going to OR and other pertinent info. @64-year-old female presenting with overdose, patient took 5 g of Tylenol approximately 60 minutes prior to arrival. Laboratory studies are obtained and currently awaiting recommendations by poison control. Care signed out at shift change to oncoming physician. (Ottoniel Haywood) Was patient admitted / discharged? Hospital course, mention meds given and route, prescriptions, significant lab abnormalities, going to OR and other pertinent info. @ -Patient was medically cleared prior to my arrival. Patient was signed out to me for psychiatric evaluation at 7 AM. EPS did evaluate the patient and EPS spoke with the psychiatrist and was determined the patient need to be admitted to the admitted the patient to the psychiatric unit. Undiagnosed new problem with uncertain prognosis? @ -[No] Drug Therapy requiring intensive monitoring for toxicity (Heparin, Nitro, Insulin, Cardizem)? @ -[No] Were any procedures done? @ -[No] Diagnosis/symptom? @ -Overdose, depression, suicidal attempt Acute, or Chronic, or Acute on Chronic? @ -Acute Uncomplicated (without systemic symptoms) or Complicated (systemic symptoms)? @ -Complicated Side effects of treatment? @ -[No] Exacerbation, Progression, or Severe Exacerbation? @ -[No] Poses a threat to life or bodily function? How? (Chest pain, USA, IA, pneumonia, PE, COPD, DKA, ARF, appy, cholecystitis, CVA, Diverticulitis, Homicidal, Suicidal, threat to staff... and all critical care pts) @ -Yes this could lead to (Thiago Vazquez) - Lab Data Lab Results 06/02/25 06/02/25 06/02/25 Range/Units 19:57 19:57 19:57 WBC 7.81 (4.50-10.00) 10*3/uL RBC 4.05 L (4.10-5.20) 10*6/uL Hgb 12.5 (12.0-15.0) g/dL Hct 37.2 (37.2-46.3) % MCV 91.9 (80.0-97.0) fL MCH 30.9 (27.0-32.0) pg MCHC 33.6 (32.0-37.0) g/dL Plt Count 201 (140-440) 10*3/uL MPV 11.2 (9.5-12.2) fL Immature Gran % (Auto) 0.1 % Neutrophils % 47.7 % Lymphocytes % 38.7 % Monocytes % 11.0 % Eosinophils % 1.9 % Basophils % 0.6 % Immature Gran # 0.01 (0.00-0.04) 10*3/uL Neutrophils # 3.72 (1.80-7.70) 10*3/uL Lymphocytes # 3.02 (0.90-5.00) 10*3/uL Monocytes # 0.86 (0.20-1.00) 10*3/uL Eosinophils # 0.15 (0.04-0.35) 10*3/uL Basophils # 0.05 (0.00-0.10) 10*3/uL PT 11.8 (10.0-12.5) sec INR 1.1 (<1.2) Sodium 138 (137-145) mmol/L Potassium 4.2 (3.5-5.1) mmol/L Chloride 103 (98-107) mmol/L Carbon Dioxide 23 (22-30) mmol/L Anion Gap 12 mmol/L BUN 12 (7-17) mg/dL Creatinine 0.60 (0.52-1.04) mg/dL Est GFR (CKD-EPI)AfAm >90 (>60 ml/min/1.73 sqM) Est GFR (CKD-EPI)NonAf >90 (>60 ml/min/1.73 sqM) Glucose 103 H (74-99) mg/dL Calcium 9.8 (8.4-10.2) mg/dL Total Bilirubin 0.4 (0.2-1.3) mg/dL AST 40 H (14-36) U/L ALT 34 (4-34) U/L Alkaline Phosphatase 95 (38-126) U/L Total Protein 6.9 (6.3-8.2) g/dL Albumin 4.4 (3.5-5.0) g/dL Urine HCG, Qual (Not Detectd) Salicylates <1.0 mg/dL Urine Opiates Screen (NotDetected) Ur Oxycodone Screen (NotDetected) Urine Methadone Screen (NotDetected) Acetaminophen 103.1 H* ug/mL Ur Barbiturates Screen (NotDetected) U Tricyclic Antidepress (NotDetected) Ur Phencyclidine Scrn (NotDetected) Ur Amphetamines Screen (NotDetected) U Methamphetamines Scrn (NotDetected) U Benzodiazepines Scrn (NotDetected) Urine Cocaine Screen (NotDetected) U Marijuana (THC) Screen (NotDetected) Serum Alcohol 123 mg/dL 06/02/25 06/02/25 06/02/25 Range/Units 20:25 20:25 22:41 WBC (4.50-10.00) 10*3/uL RBC (4.10-5.20) 10*6/uL Hgb (12.0-15.0) g/dL Hct (37.2-46.3) % MCV (80.0-97.0) fL MCH (27.0-32.0) pg MCHC (32.0-37.0) g/dL Plt Count (140-440) 10*3/uL MPV (9.5-12.2) fL Immature Gran % (Auto) % Neutrophils % % Lymphocytes % % Monocytes % % Eosinophils % % Basophils % % Immature Gran # (0.00-0.04) 10*3/uL Neutrophils # (1.80-7.70) 10*3/uL Lymphocytes # (0.90-5.00) 10*3/uL Monocytes # (0.20-1.00) 10*3/uL Eosinophils # (0.04-0.35) 10*3/uL Basophils # (0.00-0.10) 10*3/uL PT (10.0-12.5) sec INR (<1.2) Sodium 139 (137-145) mmol/L Potassium 4.0 (3.5-5.1) mmol/L Chloride 105 (98-107) mmol/L Carbon Dioxide 20 L (22-30) mmol/L Anion Gap 14 mmol/L BUN 12 (7-17) mg/dL Creatinine 0.69 (0.52-1.04) mg/dL Est GFR (CKD-EPI)AfAm >90 (>60 ml/min/1.73 sqM) Est GFR (CKD-EPI)NonAf >90 (>60 ml/min/1.73 sqM) Glucose 129 H (74-99) mg/dL Calcium 9.6 (8.4-10.2) mg/dL Total Bilirubin 0.3 (0.2-1.3) mg/dL AST 35 (14-36) U/L ALT 29 (4-34) U/L Alkaline Phosphatase 94 (38-126) U/L Total Protein 6.1 L (6.3-8.2) g/dL Albumin 3.9 (3.5-5.0) g/dL Urine HCG, Qual Not Detected (Not Detectd) Salicylates mg/dL Urine Opiates Screen Not Detected (NotDetected) Ur Oxycodone Screen Not Detected (NotDetected) Urine Methadone Screen Not Detected (NotDetected) Acetaminophen 88.5 H* ug/mL Ur Barbiturates Screen Not Detected (NotDetected) U Tricyclic Antidepress Not Detected (NotDetected) Ur Phencyclidine Scrn Not Detected (NotDetected) Ur Amphetamines Screen Not Detected (NotDetected) U Methamphetamines Scrn Not Detected (NotDetected) U Benzodiazepines Scrn Not Detected (NotDetected) Urine Cocaine Screen Not Detected (NotDetected) U Marijuana (THC) Screen Not Detected (NotDetected) Serum Alcohol mg/dL Disposition <Ottoniel Haywood - Last Filed: 06/02/25 20:15> Time of Disposition: 14:19 <Thiago Vazquez - Last Filed: 06/03/25 14:19> Clinical Impression: Acetaminophen overdose, Depression, Suicide attempt Disposition: ADMITTED IP TO THIS HOSP Referrals: None,Stated [REFERRING] - 1-2 days
[2025-06-02 20:08] LABS: Basophils # (A) 0.05 10*3/uL (0.00-0.10); Basophils % (A) 0.6 %; Eosinophils # (A) 0.15 10*3/uL (0.04-0.35); Eosinophils % (A) 1.9 %; HCT 37.2 % (37.2-46.3); HGB 12.5 g/dL (12.0-15.0); Lymphocytes # (A) 3.02 10*3/uL (0.90-5.00); Lymphocytes % (A) 38.7 %; MCH 30.9 pg (27.0-32.0); MCHC 33.6 g/dL (32.0-37.0); MCV 91.9 fL (80.0-97.0); Monocytes # (A) 0.86 10*3/uL (0.20-1.00); Monocytes % (A) 11.0 %; Neutrophils # (A) 3.72 10*3/uL (1.80-7.70); Neutrophils % (A) 47.7 %; Platelet Count 201 10*3/uL (140-440); RBC 4.05 10*6/uL (4.10-5.20); RDW 12.8 % (11.5-14.5); WBC 7.81 10*3/uL (4.50-10.00)
[2025-06-02 20:12] LABS: INR 1.1 (<1.2); Prothrombin Time 11.8 sec (10.0-12.5)
[2025-06-02 20:15] LABS: ALT 34 U/L (4-34); AST 40 U/L (14-36); African American GFR (CKD) >90 (>60 ml/min/1.73 sqM); Albumin 4.4 g/dL (3.5-5.0); Alkaline Phosphatase 95 U/L (38-126); Anion Gap 12 mmol/L; Blood Urea Nitrogen 12 mg/dL (7-17); Calcium 9.8 mg/dL (8.4-10.2); Carbon Dioxide 23 mmol/L (22-30); Chloride 103 mmol/L (98-107); Glucose 103 mg/dL (74-99); Non-African American GFR(CKD) >90 (>60 ml/min/1.73 sqM); Potassium 4.2 mmol/L (3.5-5.1); Salicylate <1.0 mg/dL; Sodium 138 mmol/L (137-145); Total Protein 6.9 g/dL (6.3-8.2)
[2025-06-02 20:23] LABS: Acetaminophen 103.1 ug/mL
[2025-06-02 20:52] LABS: Barbiturate Screen,Urine Not Detected (NotDetected); Benzodiazepines Screen,Urine Not Detected (NotDetected); Opiate Screen,Urine Not Detected (NotDetected); Oxycodone Screen, Urine Not Detected (NotDetected); Phencyclidine Screen,Urine Not Detected (NotDetected); Tricyclic Antidepressant,Urine Not Detected (NotDetected); Urn Cannabinoid Scrn Not Detected (NotDetected)
[2025-06-02] MEDS: SODIUM CHLORIDE 0.9% 1,000 ML IV STA (20:52)
[2025-06-02 23:32] LABS: ALT 29 U/L (4-34); AST 35 U/L (14-36); African American GFR (CKD) >90 (>60 ml/min/1.73 sqM); Albumin 3.9 g/dL (3.5-5.0); Alkaline Phosphatase 94 U/L (38-126); Anion Gap 14 mmol/L; Blood Urea Nitrogen 12 mg/dL (7-17); Calcium 9.6 mg/dL (8.4-10.2); Carbon Dioxide 20 mmol/L (22-30); Chloride 105 mmol/L (98-107); Glucose 129 mg/dL (74-99); Non-African American GFR(CKD) >90 (>60 ml/min/1.73 sqM); Potassium 4.0 mmol/L (3.5-5.1); Sodium 139 mmol/L (137-145); Total Protein 6.1 g/dL (6.3-8.2)
[2025-06-02 23:37] LABS: Acetaminophen 88.5 ug/mL
[2025-06-03] MEDS ORDERED: NITROGLYCERIN SL TABS 0.4 MG TAB SUBLINGUAL PRN (14:09)
[2025-06-03 15:24] LABS: RSV Not Detected (Not Detectd)
[2025-06-03] MEDS ORDERED: IBUPROFEN 600 MG TAB PO PRN (16:46)
[2025-06-03] MEDS ORDERED: ACETAMINOPHEN TAB 325 MG TAB PO PRN (16:46)
[2025-06-03] MEDS ORDERED: MAG HYDROX/AL HYDROX/SIMETH 355 ML BOTTLE PO PRN (16:46)
[2025-06-03] MEDS ORDERED: LORazepam 1 MG TAB PO PRN (16:46)
[2025-06-03] MEDS ORDERED: HALOPERIDOL LACTATE 5 MG/ML 1 ML VIAL IM PRN (16:46)
[2025-06-03] MEDS ORDERED: MAGNESIUM HYDROXIDE 2,400 MG/30 ML CUP PO PRN (16:46)
[2025-06-03] MEDS ORDERED: NITROGLYCERIN OINT 1 INCH/GM PACKET TOPICAL SCH (18:00)
[2025-06-03] MEDS: NICOTINE 14MG/24HR PATCH TRANSDERM SCH (18:28)
[2025-06-04] MEDS: LEVOTHYROXINE 75 MCG TAB PO SCH (05:58)
[2025-06-04 08:09] LABS: Cholesterol 144.00 mg/dL (0.00-200.00); HDL Cholesterol 39.90 mg/dL (40.00-60.00); LDL Cholesterol,Calculated 44.5 mg/dL (0.0-131.0); Triglycerides 298.00 mg/dL (0.00-149.00); VLDL Calculation 59.60 mg/dL (5.00-40.00)
[2025-06-04] MEDS ORDERED: ASPIRIN 325 MG TAB PO SCH (09:00)
[2025-06-04] MEDS: ASPIRIN 81 MG PO SCH (09:51)
[2025-06-04] MEDS: ATORVASTATIN 20 MG TAB PO SCH (09:51)
[2025-06-04] MEDS: PANTOPRAZOLE 40 MG TABLET PO SCH (09:52)
[2025-06-04] MEDS: ESCITALOPRAM 5 MG TAB PO SCH (09:52)
--- NOTE | 2025-06-04 13:30 | P.HP ---
Psychiatric H&P - . H&P Date: 06/04/25 History & Physical: Allergies Allergy/AdvReac Type Severity Reaction Status Date / Time No Known Allergies Allergy Verified 06/03/25 19:09 Vital Signs Temp 97.1 F L 06/04/25 09:00 Pulse 83 06/04/25 09:00 Resp 16 06/03/25 17:17 BP 122/73 06/04/25 09:00 Pulse Ox 96 06/04/25 09:00 FiO2 Intake & Output 06/03/25 06/04/25 06/04/25 18:59 06:59 18:59 Weight 83.143 kg Laboratory Last Values WBC 7.81 10*3/uL (4.50-10.00) 06/02/25 19:57 RBC 4.05 10*6/uL (4.10-5.20) L 06/02/25 19:57 Hgb 12.5 g/dL (12.0-15.0) 06/02/25 19:57 Hct 37.2 % (37.2-46.3) 06/02/25 19:57 MCV 91.9 fL (80.0-97.0) 06/02/25 19:57 MCH 30.9 pg (27.0-32.0) 06/02/25 19:57 MCHC 33.6 g/dL (32.0-37.0) 06/02/25 19:57 Plt Count 201 10*3/uL (140-440) 06/02/25 19:57 MPV 11.2 fL (9.5-12.2) 06/02/25 19:57 Immature Gran % (Auto) 0.1 % 06/02/25 19:57 Neutrophils % 47.7 % 06/02/25 19:57 Lymphocytes % 38.7 % 06/02/25 19:57 Monocytes % 11.0 % 06/02/25 19:57 Eosinophils % 1.9 % 06/02/25 19:57 Basophils % 0.6 % 06/02/25 19:57 Immature Gran # 0.01 10*3/uL (0.00-0.04) 06/02/25 19:57 Neutrophils # 3.72 10*3/uL (1.80-7.70) 06/02/25 19:57 Lymphocytes # 3.02 10*3/uL (0.90-5.00) 06/02/25 19:57 Monocytes # 0.86 10*3/uL (0.20-1.00) 06/02/25 19:57 Eosinophils # 0.15 10*3/uL (0.04-0.35) 06/02/25 19:57 Basophils # 0.05 10*3/uL (0.00-0.10) 06/02/25 19:57 PT 11.8 sec (10.0-12.5) 06/02/25 19:57 INR 1.1 (<1.2) 06/02/25 19:57 Sodium 139 mmol/L (137-145) 06/02/25 22:41 Potassium 4.0 mmol/L (3.5-5.1) 06/02/25 22:41 Chloride 105 mmol/L (98-107) 06/02/25 22:41 Carbon Dioxide 20 mmol/L (22-30) L 06/02/25 22:41 Anion Gap 14 mmol/L 06/02/25 22:41 BUN 12 mg/dL (7-17) 06/02/25 22:41 Creatinine 0.69 mg/dL (0.52-1.04) 06/02/25 22:41 Est GFR (CKD-EPI)AfAm >90 (>60 ml/min/1.73 sqM) 06/02/25 22:41 Est GFR (CKD-EPI)NonAf >90 (>60 ml/min/1.73 sqM) 06/02/25 22:41 Glucose 129 mg/dL (74-99) H 06/02/25 22:[address] Glu mg/dL 123 mg/dL 06/02/25 19:57 Hemoglobin A1c 5.9 % (<=6.0) 06/02/25 19:57 Calcium 9.6 mg/dL (8.4-10.2) 06/02/25 22:41 Total Bilirubin 0.3 mg/dL (0.2-1.3) 06/02/25 22:41 AST 35 U/L (14-36) 06/02/25 22:41 ALT 29 U/L (4-34) 06/02/25 22:41 Alkaline Phosphatase 94 U/L (38-126) 06/02/25 22:41 Total Protein 6.1 g/dL (6.3-8.2) L 06/02/25 22:41 Albumin 3.9 g/dL (3.5-5.0) 06/02/25 22:41 Triglycerides 298.00 mg/dL (0.00-149.00) H 06/02/25 19:57 Cholesterol 144.00 mg/dL (0.00-200.00) 06/02/25 19:57 LDL Cholesterol, Calc 44.5 mg/dL (0.0-131.0) 06/02/25 19:57 VLDL Cholesterol, Calc 59.60 mg/dL (5.00-40.00) H 06/02/25 19:57 HDL Cholesterol 39.90 mg/dL (40.00-60.00) L 06/02/25 19:57 Cholesterol/HDL Ratio 3.61 Ratio 06/02/25 19:57 TSH 1.900 UIU/ML (0.350-5.500) 06/02/25 19:57 Urine HCG, Qual Not Detected (Not Detectd) 06/02/25 20:25 Salicylates <1.0 mg/dL 06/02/25 19:57 Urine Opiates Screen Not Detected (NotDetected) 06/02/25 20:25 Ur Oxycodone Screen Not Detected (NotDetected) 06/02/25 20:25 Urine Methadone Screen Not Detected (NotDetected) 06/02/25 20:25 Acetaminophen 88.5 ug/mL H* 06/02/25 22:41 Ur Barbiturates Screen Not Detected (NotDetected) 06/02/25 20:25 U Tricyclic Antidepress Not Detected (NotDetected) 06/02/25 20:25 Ur Phencyclidine Scrn Not Detected (NotDetected) 06/02/25 20:25 Ur Amphetamines Screen Not Detected (NotDetected) 06/02/25 20:25 U Methamphetamines Scrn Not Detected (NotDetected) 06/02/25 20:25 U Benzodiazepines Scrn Not Detected (NotDetected) 06/02/25 20:25 Urine Cocaine Screen Not Detected (NotDetected) 06/02/25 20:25 U Marijuana (THC) Screen Not Detected (NotDetected) 06/02/25 20:25 Serum Alcohol 123 mg/dL 06/02/25 19:57 Influenza Type A (PCR) Not Detected (Not Detectd) 06/03/25 14:39 Influenza Type B (PCR) Not Detected (Not Detectd) 06/03/25 14:39 RSV (PCR) Not Detected (Not Detectd) 06/03/25 14:39 SARS-CoV-2 (PCR) Not Detected (Not Detectd) 06/03/25 14:39 06/04/25 12:09 IDENTIFYING DATA: Patient is a 64-year-old female currently is in a house with her daughter and her , currently on Social Security disability HPI: Patient presented to the hospital yesterday on petition and was brought in by police. As per EPS nursing note "Patient presented to ER by police with petition by related to intentional overdose on Tylenol. Patient assessed in ER11 from [id number]. Patient observed to be sitting on hospital stretcher, wearing hospital safety gown. Patient appears calm and cooperative and agreeable to speak to food writer. Patient verbalizes that it is all a misunderstanding. Patient appears to be minimizing situation at this time. Patient verbalizes she had 3 beers and was driving down the street with her and daughter. States she had been complaining of having a headache and needing to use the restroom. States she told her daughter 1 tylenol did not help her headache so she poured approx 15 tablets into her hand and ingested them. Per petition, patient stated she wanted to end her life when taking the pills. Patient then jumped out of the slowly moving vehicle. Per patient, she did this because she had to use the bathroom and intended to go to a nearby store. Patient appears to be impulsive and lacks judgement and understanding regarding incident. Patient denies current suicidal and homicidal ideations. Patient denies that the overdose was a suicide attempt. Patient states "I had the pills in my mouth and I swallowed them so that I didn't spit them on the ground where an animal or a kid could get them". Patient denies auditory or visual hallucinations. Patient denies any previous inpatient or outpatient hospitalizations. " Patient was seen today and agreeable to speak to food writer in the office. Patient signed voluntary to be on the mental health unit yesterday. Patient claims that she made a mistake and "normally do not act that way". She states that her and her family were driving back from a baseball game in [place] when she states that she had a very bad headache. Claims that her daughter offered her Tylenol and claims that she took several pills. Claims that most of the pills got stuck in her mouth. States that she thought it was a "joke". She asked that her bring her to the hospital. Claims that when they got closer to the hospital she wanted to stop and go to the liquor store and got out of the vehicle. She states that her and daughter called the police on her to bring her into the hospital. A petition her claiming that she was suicidal and jumped out of the moving car and also overdosed. She was minimizing, appeared to be rationalizing, poor insight and judgment. Her Tylenol level was 103.1 emission and has been declining. Blood alcohol level was 123. Urine drug screen is negative. Claims that her sleep is poor appetite is fair at this time. Patient denies any suicidal or homicidal ideations intent or plan. At this time patient denies any auditory or visual hallucinations. Patient denies any flight of ideas racing thoughts and increased in goal directed behavior. Patient admits to using alcohol occasionally, denies any other recreational drug use PAST PSYCHIATRIC HISTORY: Patient claims that she has no psychiatric history. Patient denies being on any psychiatric medications. Patient denies any previous psychiatric hospitalizations. Patient denies any psychiatric outpatient follow-up. Patient denies any history of suicide attempts in the past. PMH: as per ER note ALLERGIES: as per EMR CHEMICAL DEPENDENCY HISTORY: as per HPI FAMILY PSYCHIATRIC/SUBSTANCE USE HISTORY: Denies SOCIAL HISTORY: Patient was born and raised in [place] and also [place]. Claims that she completed high school, she denies any legal history, she claims that she has a daughter she lives with her as well they have 3 kids they live in a house. She collects Social Security disability. MENTAL STATUS EXAM: General Appearance: Patient appears to be short in stature, wearing hospital gown, stated age is alert, directable, and attempts to cooperate. Patient appears to have poor hygiene and grooming. Behavior: Patient is seated without any agitated behavior. Fairly superficial and guarded Speech: Patient's speech is fluent and nonpressured. Mood/Affect: Patient reports their mood is "fine", affect is incongruent and constricted. Suicidality/Homicidality: Patient denies having any homicidal ideation intent or plan. Denies any suicidal ideations intent or plan Perceptions: Patient denies any visual hallucinations and denies any auditory hallucinations Though content/process: There is no evidence of any delusional thought content and thought process is linear and goal-directed. Rationalizing, minimize. Memory and concentration: AOX3, grossly intact for the purposes of this session. Can spell "WORLD" backwards Judgment and insight: Poor STRENGTHS/WEAKNESSES: strength is that patient is resilient. Weakness is that patient has poor judgment and is impulsive INTELLECT: Average IMPRESSIONS: Depressive disorder unspecified Adjustment disorder with disturbance and emotions PLAN: -Patient is admitted under voluntary status to MHU for stabilization of psychiatric symptoms and safety. Patient has signed adult voluntary form and has signed medication consent and is placed in patient's chart. -Medications : Lexapro 5 mg daily for mood/anxiety, trazodone 50 mg nightly for insomnia/mood -Ativan and Haldol PRN for agitation/aggression -Patient was counselled on substance abuse and desired to cut back on use. Will offer patient subtance use rehab -Patient was informed of the risks, benefits and side effects of the medications and patient verbally consented to taking the medications. Patient signed med consent form and was placed in chart. Patient was offered medication information and declined it -Internal Medicine consult to perform medical evaluation and physical. -NRT -not needed as patient does not smoke -SW on board for discharge planning. Encourage patient to participate in groups to work on coping skills. 06/04/25 12:19 06/04/25 12:20 06/04/25 13:25
--- NOTE | 2025-06-04 21:03 | P.CONS ---
History of Present Illness - Reason for Consult Consult date: 06/04/25 medical comanagement - Chief Complaint acetaminophen overdose - History of Present Illness Isidra is a 64-year-old female with past medical history of prediabetes primary hypertension major depression. She presents to the hospital as she had a intentional overdose on Tylenol. When speaking to the patient she had expressed that she had gone to a baseball game and had 3 beers. She reports that she had a pounding headache and had taken 1 Tylenol which did not help. She reports that she took a handful of Tylenol which she is uncertain of the quantity. She expresses around 5 to 10 tablets of Tylenol. When I had spoken to the patient she had expressed that she did not want to end her life however per psychiatry documentation the patient had wanted to end her life. She reports that she initially taking that Tylenol however reports had 1-2 spit up the Tylenol however did not. She then presented to the ER for further evaluation where she is currently seen in inpatient mental health unit. Current lab work that I am able to see is on June 02 at 2230 she has a CMP showing an AST of 25 and ALT of 94. Urine drug screen is negative. Initial acetaminophen level on June 02 at 1945 was 103 however on June 02 it was 88.5. Her serum alcohol level was also 123. When speaking to the patient she denies any tobacco use. She reports that she occasionally uses alcohol and drinks beer. Review of Systems Review of systems negative except for HPI Past Medical History Past Medical History: CVA/TIA, GERD/Reflux, Thyroid Disorder Additional Past Medical History / Comment(s): Hx. H Pylori. Recent vomiting and diarhrea and bleeding from rectum, "mini strokes 2023" no residual, right ankle fracture History of Any Multi-Drug Resistant Organisms: None Reported Past Surgical History: Orthopedic Surgery, Tubal Ligation Additional Past Surgical History / Comment(s): FINGER SX, pilonidal cyst removed, anterior neck surgery, right shoulder surgery x2 (only able to lift 5 pounds), left knee surgery Past Anesthesia/Blood Transfusion Reactions: Postoperative Nausea & Vomiting (PONV) Past Psychological History: No Psychological Hx Reported Smoking Status: Never smoker Past Alcohol Use History: Occasional Additional Past Alcohol Use History / Comment(s): Drinks 3-5 beers 4-5 months a month socially. Past Drug Use History: None Reported - Past Family History Father History Unknown: Yes Additional Family Medical History / Comment(s): arrythmia Mother History Unknown: Yes Family Medical History: Diabetes Mellitus Medications and Allergies Home Medications Medication Instructions Recorded Confirmed Type Levothyroxine Sodium [Synthroid] 75 mcg PO DAILY 09/16/15 06/03/25 History Escitalopram [Lexapro] 5 mg PO DAILY 04/06/23 06/03/25 History Aspirin 81 mg PO DAILY #30 tab 04/07/23 06/03/25 Rx Omeprazole [PriLOSEC] 40 mg PO DAILY 10/29/23 06/03/25 History Rosuvastatin [Crestor] 10 mg PO DAILY 12/25/23 06/03/25 History lisinopriL [Zestril] 5 mg PO DAILY 12/25/23 06/03/25 History Semaglutide [Wegovy] 0.5 mg SQ Q7D 06/03/25 06/03/25 History Allergies Allergy/AdvReac Type Severity Reaction Status Date / Time No Known Allergies Allergy Verified 06/03/25 19:09 Physical Exam Vitals: Vital Signs Temp Pulse Resp BP Pulse Ox 06/04/25 20:48 97.8 F 86 16 187/80 96 06/04/25 09:00 97.1 F L 83 122/73 96 General: non toxic, no distress, appears older than stated age Derm: warm, dry Head: atraumatic, normocephalic, symmetric Eyes: EOMI, no lid lag, anicteric sclera, pupils equal round reactive to light ENT: Nose and ears atraumatic, no thrush, no pharyngeal erythema Neck: No thyromegaly, no cervical lymphadenopathy, trachea midline, supple Mouth: no lip lesion, mucus membranes moist Cardiovascular: S1S2 reg, no murmur, positive posterior tibial pulse bilateral, no edema, capillary refill less than 2 seconds Lungs: clear to ascultation bilateral, no ronchi, no rales, no wheeze, no accessory muscle use Abdominal: soft, nontender to palpation, no guarding, no appreciable organomegaly, normal bowel sounds Ext: no gross muscle atrophy, muscle strength muscle strength 5 out of 5 in all 4 extremities, no contractures Neuro: Moving all extremity spontaneously Psych: Alert, oriented, appropriate affect Results CBC & Chem 7: 06/02/25 19:57 06/02/25 22:41 Labs: Abnormal Lab Results - Last 24 Hours (Table) 06/02/25 Range/Units 19:57 Triglycerides 298.00 H (0.00-149.00) mg/dL VLDL Cholesterol, Calc 59.60 H (5.00-40.00) mg/dL HDL Cholesterol 39.90 L (40.00-60.00) mg/dL Assessment and Plan Assessment: #) Intentional acetaminphen overdose. please recheck acetaminophen, pt/inr and LFTS tomorrow am. please ensure her acetaminphen level has cleared #) Suicidal ideation, primary management as per pscyahitry team #) primary htn continue lisinopril 5 mg daily #) hypothyroid dz continue home levothyroxine 75 mcg daily, tsh wnl at 1.9 #) gerd continue home omeprazole #) hld continue home rosuvastatin, consider fenofibrate outpatient given her triglceride level of 298 #) prediabetes on semaglutide outpatient. random glucose level on cmp showing 103-> 129. no need for sliding scale insulin #) class 1 obesity, recommend weight loss Thank you for allowing us to take care of this patient. Please do not hesistatnt to contact us if any questions arise
[2025-06-05 08:16] LABS: INR 1.0 (<1.2); Prothrombin Time 11.5 sec (10.0-12.5)
[2025-06-05 08:19] LABS: ALT 32 U/L (4-34); AST 33 U/L (14-36); African American GFR (CKD) >90 (>60 ml/min/1.73 sqM); Albumin 4.6 g/dL (3.5-5.0); Alkaline Phosphatase 95 U/L (38-126); Anion Gap 10 mmol/L; Blood Urea Nitrogen 17 mg/dL (7-17); Calcium 10.1 mg/dL (8.4-10.2); Carbon Dioxide 31 mmol/L (22-30); Chloride 103 mmol/L (98-107); Glucose 118 mg/dL (74-99); Non-African American GFR(CKD) >90 (>60 ml/min/1.73 sqM); Potassium 4.1 mmol/L (3.5-5.1); Sodium 144 mmol/L (137-145); Total Protein 7.2 g/dL (6.3-8.2)
--- NOTE | 2025-06-05 12:10 | P.PN ---
Progress Note - Text Progress Note Date: 06/05/25 Internal History: Patient was seen today for psychiatric follow up. She claims that she has been doing "alright" on the unit. States that she is interacting more with others and trying to go to groups. States that she is also being involved in activities. Hygiene and grooming appear to be improving. Has been taking her medications reports that it is helping her mood and anxiety at this time. She continues to be somewhat vague and guarded about the situation that had occurred. She did state that comic book writer can speak to either her daughter or her about the incident that occurred. She states that she slept fairly last night and we spoke more about the trazodone. Has been up for meals. Denying any side effects at this time from the medications. Denies any auditory or visual hallucinations denies any suicidal or homicidal ideations intent or plan. MENTAL STATUS EXAM: General Appearance: Patient appears to be short in stature, wearing hospital gown, stated age is alert, directable, and attempts to cooperate. Patient appears to have improving hygiene and grooming. Behavior: Patient is seated without any agitated behavior. Fairly superficial and guarded, improving mildly Speech: Patient's speech is fluent and nonpressured. Mood/Affect: Patient reports their mood is "better", affect is incongruent and constricted. Improving mildly Suicidality/Homicidality: Patient denies having any homicidal ideation intent or plan. Denies any suicidal ideations intent or plan Perceptions: Patient denies any visual hallucinations and denies any auditory hallucinations Though content/process: There is no evidence of any delusional thought content and thought process is linear and goal-directed. Vague and guarded about her situation, improving mildly Memory and concentration: AOX3, grossly intact for the purposes of this session Judgment and insight: Poor/superficial, improving mildly IMPRESSIONS: Depressive disorder unspecified Adjustment disorder with disturbance and emotions PLAN: -Patient is admitted under voluntary status to [facility]HU for stabilization of psychiat rosemary symptoms and safety. Patient has signed adult voluntary form and has signed medication consent and is placed in patient's chart. -Medications : Lexapro 5 mg daily for mood/anxiety, trazodone 50 mg nightly for insomnia/mood -Ativan and Haldol PRN for agitation/aggression -NRT -not needed as patient does not smoke -SW on board for discharge planning. Encourage patient to participate in groups to work on coping skills. Declined to rehab. Hopeful for discharge versus Wednesday. Body Press Operator will speak with patient's over the phone will check ELSY before doing so, for further collateral information.
--- NOTE | 2025-06-06 09:52 | P.PN ---
Progress Note - Text Progress Note Date: 06/06/25 Internal History: Patient was seen today for psychiatric follow up. she was in group this morning. She had several pieces of paper and had several things circled on it relating to negative thinking and depression. She went over some of the thoughts of catastrophizing and negative self-talk and identifies that this is what is occurring to her. She states that she wants to change this and has been trying to go to group and wants to do more when she leaves. Claims that she is doing any better with regards to her mood and also insight improving mildly. She is rationalizing less today. She slept fairly with the trazodone once again. Agreeable have her Lexapro increased. Appetite is fair. Denying any side effects at this time from the medications. Denies any auditory or visual hallucinations denies any suicidal or homicidal ideations intent or plan. MENTAL STATUS EXAM: General Appearance: Patient appears to be short in stature, wearing hospital gown, stated age is alert, directable, and attempts to cooperate. Patient appears to have improving hygiene and grooming. Behavior: Patient is seated without any agitated behavior. superficial, improving mildly Speech: Patient's speech is fluent and nonpressured. Mood/Affect: Patient reports their mood is "a bit better", affect is incongruent and Improving mildly Suicidality/Homicidality: Patient denies having any homicidal ideation intent or plan. Denies any suicidal ideations intent or plan Perceptions: Patient denies any visual hallucinations and denies any auditory hallucinations Though content/process: There is no evidence of any delusional thought content and thought process is linear and goal-directed. Memory and concentration: AOX3, grossly intact for the purposes of this session Judgment and insight: superficial, improving mildly IMPRESSIONS: major depressive disorder without psychotic features Adjustment disorder with disturbance and emotions PLAN: -Patient is admitted under voluntary status to [facility] for stabilization of psychiatric symptoms and safety. Patient has signed adult voluntary form and has signed medication consent and is placed in patient's chart. -Medications : increase Lexapro 10 mg daily for mood/anxiety, trazodone 50 mg nightly for insomnia/mood -Ativan and Haldol PRN for agitation/aggression -NRT -not needed as patient does not smoke -SW on board for discharge planning. Encourage patient to participate in groups to work on coping skills. Declined to rehab. Hopeful for discharge Wednesday. Surveillance Inspector spoke with patient's over the phone yesterday who states that he is concerned about the patient's wellbeing that she is in the hospital receiving more help. He did cooperate further about the petition that patient overdosed and attempted to jump out of the car.
[2025-06-07] MEDS: ESCITALOPRAM 10 MG TAB PO SCH (09:12)
[2025-06-07 09:14] VITALS: RESP 18
--- NOTE | 2025-06-07 11:49 | P.PN ---
Progress Note - Text Progress Note Date: 06/07/25 Internal History: Patient was seen today for psychiatric follow up. Patient was seen taking part in group today and was agreeable to speak to newspaper writer in the office. Claims that she is doing better today with regard to her mood and anxiety. Claims that she is enjoying spending time with the staff members and other patients on the unit. Claims that she is not isolating anymore. She did reflect a little bit more on what had occurred, claims that she wants to be better for her family. States that she is eating well, slept well last night not reporting any side effects or problems with her medications. Denies any auditory or visual hallucinations denies any suicidal or homicidal ideations intent or plan. MENTAL STATUS EXAM: General Appearance: Patient appears to be short in stature, wearing hospital gown, stated age is alert, directable, and attempts to cooperate. Patient appears to have improving hygiene and grooming. Behavior: Patient is seated without any agitated behavior. less superficial, improving mildly Speech: Patient's speech is fluent and nonpressured. Mood/Affect: Patient reports their mood is "a bit better", affect is congruent and Improving mildly Suicidality/Homicidality: Patient denies having any homicidal ideation intent or plan. Denies any suicidal ideations intent or plan Perceptions: Patient denies any visual hallucinations and denies any auditory hallucinations Though content/process: There is no evidence of any delusional thought content and thought process is linear and goal-directed. More future oriented Memory and concentration: AOX3, grossly intact for the purposes of this session Judgment and insight: improving mildly IMPRESSIONS: major depressive disorder without psychotic features Adjustment disorder with disturbance and emotions PLAN: -Patient is admitted under voluntary status to [facility] for stabilization of psychiatric symptoms and safety. Patient has signed adult voluntary form and has signed medication consent and is placed in patient's chart. -Medications : Lexapro 10 mg daily for mood/anxiety, trazodone 50 mg nightly for insomnia/mood -Ativan and Haldol PRN for agitation/aggression -NRT -not needed as patient does not smoke -SW on board for discharge planning. Encourage patient to participate in groups to work on coping skills. Declined to rehab. Hopeful for discharge tomorrow. metal storage worker to recheck to the patient's family to prepare patient for discharge tomorrow and for her safety concerns and care weapons in the house.
[2025-06-08 08:48] VITALS: BP 138/77; PULSE 76; TEMP 97.8
--- NOTE | 2025-06-08 11:14 | P.DS ---
Providers Date of admission: 06/03/25 16:45 Expected date of discharge: 06/08/25 Attending physician: Silvio Morataya MD Consults: 06/03/25 16:46 Consult Physician Routine Consulting Provider: Carlos Gutierrez Consult Reason/Comments: History and Physical, New Admission Do you want consulting provider notified?: Yes Primary care physician: Herman Castellanos - Discharge Diagnosis(es) (1) Major depressive disorder without psychotic features Current Visit: Yes Status: Acute Priority: High (2) Adjustment disorder with emotional disturbance Current Visit: Yes Status: Acute Priority: High Hospital Course: Admission HPI: Admission note was completed by technical report writer "Patient is a 64-year-old female currently is in a house with her daughter and her , marni reyes on Social Security disability. Patient presented to the hospital yesterday on petition and was brought in by police. As per EPS nursing note "Patient presented to ER by police with petition by related to intentional overdose on Tylenol. Patient assessed in ER11 from [id number]. Patient observed to be sitting on hospital stretcher, wearing hospital safety gown. Patient appears calm and cooperative and agreeable to speak to technical report writer. Patient verbalizes that it is all a misunderstanding. Patient appears to be minimizing situation at this time. Patient verbalizes she had 3 beers and was driving down the street with her and daughter. States she had been complaining of having a headache and needing to use the restroom. States she told her daughter 1 tylenol did not help her headache so she poured approx 15 tablets into her hand and ingested them. Per petition, patient stated she wanted to end her life when taking the pills. Patient then jumped out of the slowly moving vehicle. Per patient, she did this because she had to use the bathroom and intended to go to a nearby store. Patient appears to be impulsive and lacks judgement and understanding regarding incident. Patient denies current suicidal and homicidal ideations. Patient denies that the overdose was a suicide attempt. Patient states "I had the pills in my mouth and I swallowed them so that I didn't spit them on the ground where an animal or a kid could get them". Patient denies auditory or visual hallucinations. Patient denies any previous inpatient or outpatient hospitalizations. " Patient was seen today and agreeable to speak to technical report writer in the office. Patient signed voluntary to be on the mental health unit yesterday. Patient claims that she made a mistake and "normally do not act that way". She states that her and her family were driving back from a baseball game in [place] when she states that she had a very bad headache. Claims that her daughter offered her Tylenol and claims that she took several pills. Claims that most of the pills got stuck in her mouth. States that she thought it was a "joke". She asked that her bring her to the hospital. Claims that when they got closer to the hospital she wanted to stop and go to the liquor store and got out of the vehicle. She states that her and daughter called the police on her to bring her into the hospital. A petition her claiming that she was suicidal and jumped out of the moving car and also overdosed. She was minimizing, appeared to be rationalizing, poor insight and judgment. Her Tylenol level was 103.1 emission and has been declining. Blood alcohol level was 123. Urine drug screen is negative. Claims that her sleep is poor appetite is fair at this time. Patient denies any suicidal or homicidal ideations intent or plan. At this time patient denies any auditory or visual hallucinations. Patient denies any flight of ideas racing thoughts and increased in goal directed behavior. Patient admits to using alcohol occasionally, denies any other recreational drug use" Hospital course: Upon admission to the unit patient was directable and agreeable to commence treatment and signed adult voluntary form. Patient was initially superficial however with time and treatment patient got along well with other patients on the unit and followed unit protocol. Patient was compliant with the medications and denied any side effects throughout hospital course. Patient was started on Lexapro increased to 10 mg daily for mood/anxiety, trazodone 50 mg nightly for insomnia/mood. Patient spoke of her stressors and engaged in therapy both group/activity therapy. Patient was also seen by medical team for history and physical exam. Throughout the course of the hospitalization patient gradually improved with regards to mood, anxiety, sleep and became more future oriented with improved insight and judgment. On the day of discharge patient denied any suicidal or homicidal ideations intent or plan denied any auditory or visual hallucinations. Patient endorsed wanting to live for their health and family. The patient denied any access to guns or weapons. Patient denied any paranoia and did not endorse any delusions. Patient does not have a significant history of substance abuse and was counseled on abstaining from all substances including alcohol and marijuana. . Patient was also counseled on the medications and need for regular compliance and was encouraged to follow-up with their outpatient appointment for mental health and also for primary care. Mental status exam: General Appearance: Patient appears to be mildly overweight, wears glasses, stated age is alert, pleasant, and cooperative. Patient is in no acute distress and has improved hygiene and grooming Behavior: Patient is calmly seated without any agitated behavior. Speech: Patient's speech is fluent and nonpressured. Mood/Affect: Patient reports their mood is "good", affect is congruent and euthymic. Suicidality/Homicidality: Patient denies having any suicidal or homicidal ideation intent or plan. Perceptions: Patient denies any auditory or visual hallucinations. Though content/process: There is no evidence of any delusional thought content and thought process is linear and goal-directed. More future oriented Memory and concentration: AOX3, grossly intact for the purposes of this session. Can spell "WORLD" backwards correctly. Judgment and insight: improved with guarded prognosis Impression: Major depressive disorder without psychotic features Adjustment disorder with emotional disturbance Plan: -Continue with discharge today as patient has improved and stabilized psychiatrically and is not currently an imminent threat to themself and/or others. Patient will remain at chronically elevated risk for harm to self and/or others due to their impulsivity. -Continue medications: Lexapro 10 mg daily for mood/anxiety, trazodone 50 mg nightly for mood/insomnia -Patient was counseled on the need for medication compliance and appropriate follow-up at mental health and also primary care for medical issues. Patient verbalized understanding and agreed. -Social work to arrange for and conduct family meeting to ensure safety upon discharge and answer any questions/concerns. also to ensure safe home environment that guns/weapons are either removed from the home or locked away. Social work also to arrange for patients follow up appointments for psychiatric care along with follow up with primary care provider. -Patient counseled on abstaining from recreational drugs and marijuana and alc ohol. Was informed/educated on the adverse effects on their physical and mental health. Patient verbally agreed and understood. -Patient was instructed to return to the hospital or seek immediate medical care if their psychiatric or medical symptoms do worsen or reoccur. Allergies Allergy/AdvReac Type Severity Reaction Status Date / Time No Known Allergies Allergy Verified 06/03/25 19:09 Laboratory Results WBC 7.81 10*3/uL (4.50-10.00) 06/02/25 19:57 RBC 4.05 10*6/uL (4.10-5.20) L 06/02/25 19:57 Hgb 12.5 g/dL (12.0-15.0) 06/02/25 19:57 Hct 37.2 % (37.2-46.3) 06/02/25 19:57 MCV 91.9 fL (80.0-97.0) 06/02/25 19:57 MCH 30.9 pg (27.0-32.0) 06/02/25 19:57 MCHC 33.6 g/dL (32.0-37.0) 06/02/25 19:57 Plt Count 201 10*3/uL (140-440) 06/02/25 19:57 MPV 11.2 fL (9.5-12.2) 06/02/25 19:57 Immature Gran % (Auto) 0.1 % 06/02/25 19:57 Neutrophils % 47.7 % 06/02/25 19:57 Lymphocytes % 38.7 % 06/02/25 19:57 Monocytes % 11.0 % 06/02/25 19:57 Eosinophils % 1.9 % 06/02/25 19:57 Basophils % 0.6 % 06/02/25 19:57 Immature Gran # 0.01 10*3/uL (0.00-0.04) 06/02/25 19:57 Neutrophils # 3.72 10*3/uL (1.80-7.70) 06/02/25 19:57 Lymphocytes # 3.02 10*3/uL (0.90-5.00) 06/02/25 19:57 Monocytes # 0.86 10*3/uL (0.20-1.00) 06/02/25 19:57 Eosinophils # 0.15 10*3/uL (0.04-0.35) 06/02/25 19:57 Basophils # 0.05 10*3/uL (0.00-0.10) 06/02/25 19:57 PT 11.5 sec (10.0-12.5) 06/05/25 07:33 INR 1.0 (<1.2) 06/05/25 07:33 Sodium 144 mmol/L (137-145) 06/05/25 07:33 Potassium 4.1 mmol/L (3.5-5.1) 06/05/25 07:33 Chloride 103 mmol/L (98-107) 06/05/25 07:33 Carbon Dioxide 31 mmol/L (22-30) H 06/05/25 07:33 Anion Gap 10 mmol/L 06/05/25 07:33 BUN 17 mg/dL (7-17) 06/05/25 07:33 Creatinine 0.67 mg/dL (0.52-1.04) 06/05/25 07:33 Est GFR (CKD-EPI)AfAm >90 (>60 ml/min/1.73 sqM) 06/05/25 07:33 Est GFR (CKD-EPI)NonAf >90 (>60 ml/min/1.73 sqM) 06/05/25 07:33 Glucose 118 mg/dL (74-99) H 06/05/25 07:[address] Glu mg/dL 123 mg/dL 06/02/25 19:57 Hemoglobin A1c 5.9 % (<=6.0) 06/02/25 19:57 Calcium 10.1 mg/dL (8.4-10.2) 06/05/25 07:33 Total Bilirubin 0.6 mg/dL (0.2-1.3) 06/05/25 07:33 AST 33 U/L (14-36) 06/05/25 07:33 ALT 32 U/L (4-34) 06/05/25 07:33 Alkaline Phosphatase 95 U/L (38-126) 06/05/25 07:33 Total Protein 7.2 g/dL (6.3-8.2) 06/05/25 07:33 Albumin 4.6 g/dL (3.5-5.0) 06/05/25 07:33 Triglycerides 298.00 mg/dL (0.00-149.00) H 06/02/25 19:57 Cholesterol 144.00 mg/dL (0.00-200.00) 06/02/25 19:57 LDL Cholesterol, Calc 44.5 mg/dL (0.0-131.0) 06/02/25 19:57 VLDL Cholesterol, Calc 59.60 mg/dL (5.00-40.00) H 06/02/25 19:57 HDL Cholesterol 39.90 mg/dL (40.00-60.00) L 06/02/25 19:57 Cholesterol/HDL Ratio 3.61 Ratio 06/02/25 19:57 TSH 1.900 UIU/ML (0.350-5.500) 06/02/25 19:57 Urine HCG, Qual Not Detected (Not Detectd) 06/02/25 20:25 Salicylates <1.0 mg/dL 06/02/25 19:57 Urine Opiates Screen Not Detected (NotDetected) 06/02/25 20:25 Ur Oxycodone Screen Not Detected (NotDetected) 06/02/25 20:25 Urine Methadone Screen Not Detected (NotDetected) 06/02/25 20:25 Acetaminophen <10.0 ug/mL 06/05/25 07:33 Ur Barbiturates Screen Not Detected (NotDetected) 06/02/25 20:25 U Tricyclic Antidepress Not Detected (NotDetected) 06/02/25 20:25 Ur Phencyclidine Scrn Not Detected (NotDetected) 06/02/25 20:25 Ur Amphetamines Screen Not Detected (NotDetected) 06/02/25 20:25 U Methamphetamines Scrn Not Detected (NotDetected) 06/02/25 20:25 U Benzodiazepines Scrn Not Detected (NotDetected) 06/02/25 20:25 Urine Cocaine Screen Not Detected (NotDetected) 06/02/25 20:25 U Marijuana (THC) Screen Not Detected (NotDetected) 06/02/25 20:25 Serum Alcohol 123 mg/dL 06/02/25 19:57 Influenza Type A (PCR) Not Detected (Not Detectd) 06/03/25 14:39 Influenza Type B (PCR) Not Detected (Not Detectd) 06/03/25 14:39 RSV (PCR) Not Detected (Not Detectd) 06/03/25 14:39 SARS-CoV-2 (PCR) Not Detected (Not Detectd) 06/03/25 14:39 Vital Signs Temp 97.8 F 06/08/25 08:47 Pulse 76 06/08/25 08:47 Resp 18 06/08/25 08:47 BP 138/77 06/08/25 08:47 Pulse Ox 98 06/08/25 08:47 FiO2 Patient Condition at Discharge: Stable Plan - Discharge Summary Discharge Rx Participant: No New Discharge Prescriptions: New traZODone HCL [Desyrel] 50 mg PO HS 30 Days #30 tab Ibuprofen [Motrin] 600 mg PO Q6HR PRN tab PRN Reason: Moderate Pain (Scale 4 To 6) Escitalopram [Lexapro] 10 mg PO DAILY 30 Days #30 tab Continue Levothyroxine Sodium [Synthroid] 75 mcg PO DAILY Rosuvastatin [Crestor] 10 mg PO DAILY lisinopriL [Zestril] 5 mg PO DAILY Aspirin 81 mg PO DAILY #30 tab Omeprazole [PriLOSEC] 40 mg PO DAILY Semaglutide [Wegovy] 0.5 mg SQ Q7D Discontinued Escitalopram [Lexapro] 5 mg PO DAILY Discharge Medication List Levothyroxine Sodium [Synthroid] 75 mcg PO DAILY 09/16/15 [History] Aspirin 81 mg PO DAILY #30 tab 04/07/23 [Rx] Omeprazole [PriLOSEC] 40 mg PO DAILY 10/29/23 [History] Rosuvastatin [Crestor] 10 mg PO DAILY 12/25/23 [History] lisinopriL [Zestril] 5 mg PO DAILY 12/25/23 [History] Semaglutide [Wegovy] 0.5 mg SQ Q7D 06/03/25 [History] Escitalopram [Lexapro] 10 mg PO DAILY 30 Days #30 tab 06/08/25 [Rx] Ibuprofen [Motrin] 600 mg PO Q6HR PRN tab 06/08/25 [Rx] traZODone HCL [Desyrel] 50 mg PO HS 30 Days #30 tab 06/08/25 [Rx] Follow up Appointment(s)/Referral(s): None,Stated [REFERRING] - 1-2 days Activity/Diet/Wound Care/Special Instructions: [facility] Discharge Info Avoid the use of street drugs and alcohol. Take all medications as prescribed. When you are in need of refills on your medications, please contact your outpatient medical provider and/or outpatient psychiatrist. Please go to your scheduled outpatient appointments for aftercare treatment. If symptoms return or become worse, call the crisis line at or and/or visit the nearest emergency room for assistance. National Suicide and Crisis Lifeline - call or text 988. Discharge Disposition: HOME SELF-CARE
== END 2025-06-08 13:40 | disposition home or self-care (01) | DRG 881 ==
LOC: EC 19:24 → 3MHU 06-03 16:45
PROVIDERS: ADMIT Psychiatry & Neurology Psychiatry; ATTEND Psychiatry & Neurology Psychiatry
DX: F32.9 Major depressive disorder, single episode, unspecified (principal); E03.9 Hypothyroidism, unspecified; I10 Essential (primary) hypertension; E66.811 Obesity, class 1; F43.29 Adjustment disorder with other symptoms; F41.9 Anxiety disorder, unspecified; G47.00 Insomnia, unspecified; T39.1X2A Poisoning by 4-Aminophenol derivatives, intentional self-harm, initial encounter; K21.9 Gastro-esophageal reflux disease without esophagitis; Z68.31 Body mass index [BMI] 31.0-31.9, adult; R73.03 Prediabetes; E78.5 Hyperlipidemia, unspecified; Z79.82 Long term (current) use of aspirin; Z79.85 Long-term (current) use of injectable non-insulin antidiabetic drugs; Z79.890 Hormone replacement therapy; Z79.899 Other long term (current) drug therapy; Y92.481 Parking lot as the place of occurrence of the external cause; Z86.73 Personal history of transient ischemic attack (TIA), and cerebral infarction without residual deficits; V48.4XXA Person boarding or alighting a car injured in noncollision transport accident, initial encounter
CPT/HCPCS: 36415; 80053; 80061; 80143; 80179; 80306; 80320; 81025; 82075; 83036; 84443; 85025; 85610; 87636; 93005; 99285

== ENCOUNTER → 2025-06-11 | Outpatient (CLI) | payer MEDICARE, OTHER ==
--- NOTE | 2025-06-12 14:31 | MR ---
MR shoulder RT wo con DATE OF EXAM: 06/11/2025 10:09 AM COMPARISON: Right shoulder MR 09/10/2021. CLINICAL INDICATION: Female, 64 years old with history of M75.101; PHH, Rt shoulder pain TECHNIQUE: Noncontrast multiplanar, multiecho imaging of the right shoulder was performed, including T1-weighted and fluid sensitive sequences. FINDINGS: Rotator cuff: Supraspinatus and infraspinatus: Small full-thickness partial width tear of the posterior supraspinat us, slightly progressed from the prior 2020,, now involving the articular surface of the infraspinatu s. There remains no evidence of retraction. Background tendinosis. Subscapularis: Intact. Teres minor: Intact. Cuff muscles: Symmetric bulk and signal intensity. Acromioclavicular joint: Discontinuity of the inferior acromioclavicular ligament again suggested wit h small joint effusion contiguous fluid from the subdeltoid bursa. No significantly worsened arthrosi s. SA-SD bursa: Unchanged moderate volume bursal fluid, predominantly located inferior to the acromion a nd posterior subdeltoid, unchanged from prior. Long head biceps tendon: Intact, with normal course. Intra-articular tendinosis. Rotator Interval: Preserved. Axillary pouch: Preserved. Labrum: Diminutive and blunted appearance of the posterior superior labrum likely a degenerative basi s. No discrete tear. Cartilage: Mild surface irregularity, no high-grade full-thickness defect. Marrow: No fracture or marrow replacing process. Other soft tissues: No joint effusion. No axillary adenopathy. IMPRESSION: 1. Slight propagation of a full-thickness partial width tear of the posterior supraspinatus, now inv olving the articular surface of the infraspinatus. No tendinous retraction. 2. Similar subdeltoid bursitis, again with suggestion of insufficiency of the inferior acromioclavic ular ligament. [facility], , 06/12/2025 2:29 PM
== END | disposition home or self-care (01) ==
LOC: RADMRIMAIN 09:23
PROVIDERS: ATTEND Family Medicine
DX: M75.101 Unspecified rotator cuff tear or rupture of right shoulder, not specified as traumatic (principal); M75.51 Bursitis of right shoulder